=== PATIENT | female | born 1935 | race Caucasian/White ===

== ENCOUNTER → 2016-08-25 | Outpatient (CLI) | payer MEDICARE ==
[2016-08-25 11:28] LABS: Basophils % (A) 1 %; CH 31.5; CHCM 34.2; Eosinophils # (A) 0.1 k/uL (0-0.7); Eosinophils % (A) 1 %; HCT 40.2 % (34.0-46.0); HDW 2.76; HGB 13.4 gm/dL (11.4-16.0); Luc % (Auto) 3; Lymphocytes # (A) 1.2 k/uL (1.0-4.8); Lymphocytes % (A) 18 %; MCH 30.9 pg (25.0-35.0); MCHC 33.4 g/dL (31.0-37.0); MCV 92.6 fL (80.0-100.0); Mean Platelet Volume 7.6; Monocytes # (A) 0.7 k/uL (0-1.0); Monocytes % (A) 11 %; Neutrophils # (A) 4.5 k/uL (1.3-7.7); Neutrophils % (A) 66 %; RBC 4.34 m/uL (3.80-5.40); RDW 13.4 % (11.5-15.5); WBC 6.8 k/uL (3.8-10.6); WBC (Perox) 6.94
[2016-08-25 12:08] LABS: Anion Gap 10 mmol/L; Blood Urea Nitrogen 26 mg/dL (7-17); Calcium 9.1 mg/dL (8.4-10.2); Carbon Dioxide 36 mmol/L (22-30); Chloride 96 mmol/L (98-107); Glucose 140 mg/dL (74-99); Non-African American GFR(MDRD) >60 (>60 ml/min/1.73 sqM); Potassium 3.4 mmol/L (3.5-5.1); Sodium 142 mmol/L (137-145)
== END | disposition home or self-care (01) ==
LOC: LABWHC1 10:51
PROVIDERS: ATTEND Family Medicine
DX: Z01.818 Encounter for other preprocedural examination (principal); J84.10 Pulmonary fibrosis, unspecified
CPT/HCPCS: 36415; 80048; 85025

== ENCOUNTER → 2016-08-25 | Outpatient (CLI) | payer MEDICARE ==
--- NOTE | 2016-08-25 12:19 | XR ---
EXAMINATION TYPE: XR chest 2V DATE OF EXAM: 08/25/2016 11:54 AM COMPARISON: NONE INDICATION: Pulmonary fibrosis TECHNIQUE: Frontal and lateral views of the chest are obtained. FINDINGS: The heart size is normal. The pulmonary vasculature is normal. The lungs are clear. Suspicious infiltrates are not evident. IMPRESSION: 1. No acute pulmonary process.
== END | disposition home or self-care (01) ==
LOC: RADXRMAIN 11:11
PROVIDERS: ATTEND Internal Medicine Geriatric Medicine
DX: J84.10 Pulmonary fibrosis, unspecified (principal)
CPT/HCPCS: 71020

== ENCOUNTER 2016-09-13 06:21 | Day surgery (SDC) | payer MEDICARE ==
[2016-09-10 14:12] VITALS: BMI 26.5
--- NOTE | 2016-09-12 15:18 | HP ---
DATE OF ADMISSION: 09/13/2016 Ellie Barrios is an 81-year-old patient seen with progressive left knee pain. After having treatment options discussed, she elected to proceed with left knee arthroscopy. Consent was obtained. Medical clearance provided by Dr. Salinas. Past medical history is [id number] diabetes, hypertension, asthma, hypothyroidism, gastroesophageal reflux disease. PAST SURGICAL HISTORY: Cataract surgery, cholecystectomy, thyroidectomy. Daily medications are: 1. Isosorbide. 2. Metformin. 3. Metoprolol/hydrochlorothiazide. 4. [place]. 5. Pravastatin. 6. Prilosec. 7. Synthroid. ALLERGIES: None reported. SOCIAL HISTORY: Patient denies tobacco use. Physical evaluation of the left knee: Range of motion is -1/2 to 120 degrees. There is a mild to moderate intra-articular effusion present. Tenderness medial joint line. Positive medial Celestina's. Ligaments are stable. Hip rotation is without pain. Distal neurovascular exam is intact. Radiographs of the left knee revealed moderate medial compartment osteoarthritis. An MRI of the left knee revealed a medial and lateral meniscal tear as well as osteoarthritic changes. IMPRESSION: 1. Internal derangement of the left knee with medial and lateral meniscal tears. 2. Left knee osteoarthritis. PLAN: Left knee arthroscopy with partial medial and lateral meniscectomy and debridement.
[~2016-09-13 06:21] MED LIST: DEXAMETHASONE SOD PHOSPHATE 10 MG/ML 1 ML VIAL IV ONE; HYDROmorphone 1 MG/ML 1 ML SYRINGE IVP PRN; LACTATED RINGERS 1,000 ML IV SCH; MIDAZOLAM 2 MG/2 ML VIAL IV PRN; ONDANSETRON 4 MG/2 ML VIAL IVP ONE; ceFAZolin 1,000 MG in DEXTROSE/WATER 1 50ML.BAG IV ONE
[2016-09-13 07:02] VITALS: RESP 16
[2016-09-13] MEDS ORDERED: LIDOCAINE 1% 20 ML VIAL (10MG/ML) FOR IV START INTRADERMA ONE (07:05)
[2016-09-13 07:19] LABS: Glucose,Whole Blood 124 mg/dL (75-99)
[2016-09-13] MEDS ORDERED: PROPOFOL 10 MG/ML 20 ML VIAL IV ONE (07:28)
[2016-09-13] MEDS ORDERED: MIDAZOLAM 2 MG/2 ML VIAL ONE (07:28)
[2016-09-13] MEDS ORDERED: BUPIVACAIN-EPI 0.25%-1:200,000 30 ML VIAL INTRAARTIC ONE (07:28)
[2016-09-13] MEDS ORDERED: SUCCINYLCHOLINE CHLORIDE 100 MG/5 ML SYR IV ONE (07:28)
[2016-09-13] MEDS ORDERED: LIDOCAINE 1% INJ 10MG/ML (20 ML MDV) ONE (07:28)
[2016-09-13] MEDS ORDERED: fentaNYL (PF) 50 MCG/ML 2 ML AMP ONE (07:28)
--- NOTE | 2016-09-13 08:31 | P.OP ---
Date of Procedure: 09/13/16 Preoperative Diagnosis: Internal derangement left knee Postoperative Diagnosis: 1. Tear medial and lateral meniscus left knee 2. Grade 4 chondromalacia medial femoral condyle left knee 3. Grade 3 chondromalacia lateral femoral condyle left knee 4. Reactive synovitis medial and suprapatellar compartments left knee Procedure(s) Performed: 1. Arthroscopic partial medial and lateral meniscectomy left knee 2. Arthroscopic chondroplasty medial femoral condyle left knee 3. Arthroscopic chondroplasty lateral femoral condyle left knee 4. Arthroscopic partial synovectomy medial and suprapatellar compartments left knee Anesthesia: GETA Surgeon: Roland Sarkar Estimated Blood Loss (ml): 10 Pathology: none sent Condition: stable Disposition: PACU Indications for Procedure: 81-year-old patient seen with progressive left knee pain. After having treatment options discussed, she elected to proceed with left knee arthroscopy. Operative Findings: see description of procedure Description of Procedure: Patient was taken to the operative suite. Patient underwent a general anesthetic by the department of anesthesia. Patient was given preoperative antibiotics. The left lower extremity was placed in a well-padded arthroscopic leg torres. The left leg was prepped and draped in the normal sterile orthopedic fashion. A lateral parapatellar and suprapatellar incision was made. Trochars were inserted. Arthroscopy was initiated. Suprapatellar pouch revealed thick reactive synovitis. The patellofemoral joint appeared to articulate congruently. There was grade 2/3 chondromalacia without any significant osteochondral tears present. The scope was guided into the medial gutter. No loose bodies or plica were identified. The scope was then guided into the medial compartment. A medial parapatellar incision was made. Trocar inserted followed by probe. There was a complex tear involving the posterior horn and midbody medial meniscus. There were grade 4 chondromalacia changes of both the medial femoral condyle and tibial plateau. There was an area of bone contact on the most medial weightbearing surface area. There were osteochondral tears of the medial femoral condyle. There was reactive synovitis anteriorly. A partial medial meniscectomy was performed on a stable tissue. I performed a chondroplasty of the medial femoral condyle and partial synovectomy. The residual meniscus was probed and found to be stable. Scope and probe were then guided into the intercondylar notch. Cruciates were identified, probed and found to be stable. The scope and probe were then guided into lateral compartment. There was a complex tear of the lateral meniscus. It involved mid body as well as posterior horn area. There were grade 3 chondral changes of lateral femoral condyle and grade 2 condylar changes lateral tibial plateau. A partial lateral meniscectomy was performed on a stable tissue. I performed a chondroplasty lateral femoral condyle. The residual meniscus appeared stable. The scope was in guided back into the suprapatellar compartment. I introduced the motorized shaver into the suprapatellar compartment. I debrided some piecemeal fragments of meniscus and performed a partial synovectomy. Shaver removed. Instruments were now removed from the joint. The joint was infiltrated with .25% Marcaine. Steri-Strips were applied to the portal sites. Sterile dressings were applied. The patient was placed into a FREDERIC hose. No tourniquet was utilized. The patient was awakened, transferred to a bed and taken to recovery stable satisfactory condition.
[2016-09-13 08:48] VITALS: TEMP 97.2
[2016-09-13] MEDS ORDERED: HYDROcodone/APAP 7.5-325MG 1 EACH TAB PO ONE (09:29)
[2016-09-13 10:19] VITALS: BP 111/61; PULSE 77
== END 2016-09-13 10:40 | disposition home or self-care (01) ==
LOC: OR 06:21
PROVIDERS: ATTEND Orthopaedic Surgery
DX: S83.242A Other tear of medial meniscus, current injury, left knee, initial encounter (principal); S83.282A Other tear of lateral meniscus, current injury, left knee, initial encounter; X58.XXXA Exposure to other specified factors, initial encounter; M94.262 Chondromalacia, left knee; M65.862 Other synovitis and tenosynovitis, left lower leg; M23.92 Unspecified internal derangement of left knee; M17.12 Unilateral primary osteoarthritis, left knee; M25.462 Effusion, left knee; I10 Essential (primary) hypertension; E78.5 Hyperlipidemia, unspecified; G47.33 Obstructive sleep apnea (adult) (pediatric); J84.10 Pulmonary fibrosis, unspecified; K21.9 Gastro-esophageal reflux disease without esophagitis; J45.909 Unspecified asthma, uncomplicated; G25.81 Restless legs syndrome; Z85.850 Personal history of malignant neoplasm of thyroid; E89.0 Postprocedural hypothyroidism; Z86.73 Personal history of transient ischemic attack (TIA), and cerebral infarction without residual deficits; Z79.82 Long term (current) use of aspirin; Z79.891 Long term (current) use of opiate analgesic; Z79.899 Other long term (current) drug therapy
CPT/HCPCS: 29880; J2250; J1100; J2405; J2001; J3010; J0690; J0330; J2704

== ENCOUNTER → 2017-04-04 | Outpatient (CLI) | payer MEDICARE ==
--- NOTE | 2017-04-04 13:36 | XR ---
EXAMINATION TYPE: XR chest 2V DATE OF EXAM: 04/04/2017 HISTORY: Z01.818 Pre surgical. REFERENCE: Previous study dated 08/25/2016. FINDINGS: Heart is mildly prominent. The lungs are clear. Pleural spaces are clear. IMPRESSION: MILD CARDIOMEGALY.
--- NOTE | 2017-04-04 13:40 | US ---
EXAMINATION TYPE: US kidneys/renal and bladder DATE OF EXAM: 04/04/2017 COMPARISON: NONE CLINICAL HISTORY: R31.9 Hematuria. EXAM MEASUREMENTS: Right Kidney: 8.9 x 4.2 x 4.0 cm Left Kidney: 7.6 x 4.1 x 3.6 cm Right Kidney: No hydronephrosis, nephrolithiasis or masses seen, atrophy Left Kidney: No hydronephrosis, nephrolithiasis or masses seen, atrophy Bladder: wnl Bilateral Jets seen: Yes IMPRESSION: Kidneys are somewhat atrophic bilaterally with no hydronephrosis or nephrolithiasis. Renal cortex fany ewhat increased in echo pattern correlate for chronic medical renal disease.
== END | disposition home or self-care (01) ==
LOC: RADUSWWP 12:38
PROVIDERS: ATTEND Family Medicine
DX: N26.1 Atrophy of kidney (terminal) (principal); I51.7 Cardiomegaly
CPT/HCPCS: 71020; 76770

== ENCOUNTER → 2017-04-11 | Outpatient (CLI) | payer MEDICARE ==
[~2017-04-11] MED LIST changes: -DEXAMETHASONE SOD PHOSPHATE 10 MG/ML 1 ML VIAL IV ONE; -HYDROmorphone 1 MG/ML 1 ML SYRINGE IVP PRN; -LACTATED RINGERS 1,000 ML IV SCH; -MIDAZOLAM 2 MG/2 ML VIAL IV PRN; -ONDANSETRON 4 MG/2 ML VIAL IVP ONE; +REGADENOSON 0.4 MG/5 ML SYRINGE IV ONE; -ceFAZolin 1,000 MG in DEXTROSE/WATER 1 50ML.BAG IV ONE
--- NOTE | 2017-04-11 11:41 | NM ---
EXAMINATION TYPE: NM stress lexiscan cardiolite DATE OF EXAM: 04/11/2017 COMPARISON: NONE HISTORY: Abnormal EKG per order. History of asthma, hypertension, hypercholesteremia per patient, pre surgical study. TECHNIQUE: After the intravenous administration of 11.38 mCi Tc 99m Sestamibi - Cardiolite resting S PECT images acquired 45 minutes post injection. The patient received 0.4mg Lexiscan, 28.4 mCi Tc 99m Sestamibi - Stress images obtained [address] injection FINDINGS: Review of stress and rest SPECT images demonstrates no distinct perfusion abnormality. There is some diminished uptake in rest and stress images involving inferior lateral wall mid segment extending tow ards apex in which the area of old infarct cannot be excluded versus artifact which is favored. Gated analysis shows normal wall motion with an estimated left ventricular ejection fraction of 57 %. IMPRESSION: No scintigraphic evidence for reversible ischemia.
--- NOTE | 2017-04-11 13:08 | EST ---
EXERCISE STRESS AGE:: 81 SEX:: F HT:: 62" WT:: 153 PROTOCOL:: LEXISCAN CARDIOLITE STRESS TEST STAGE:: - DURATION OF EXERCISE:: - HEART RATE REST:: 77 BLOOD PRESSURE REST:: 130/70 MAXIMUM HEART RATE ACHIEVED:: 105 MAXIMUM BLOOD PRESSURE:: 139/63 85% MPHR:: - 100% MPHR:: - METS:: - INDICATIONS:: Preoperative CLINICAL INFORMATION:: Baseline EKG revealed normal sinus rhythm with right bundle branch block pattern, repolarization abnormality, rare PVCs. With Lexiscan administration, heart rate changed from 77 to 105 beats per minute. Baseline blood pressure was 130/70 changed to 139/63. EKG remained inconclusive. Patient did not have angina. By EKG criteria, this is an inconclusive Lexiscan stress test because of resting EKG changes. The nuclear scan results which are more pertinent, will be reported by the radiologist. PORSCHEL / RACHELN: [id number] /
--- NOTE | 2017-04-12 17:35 | ECHOF ---
Referral Reason:R94.31 abn ekg MEASUREMENTS -------- HEIGHT: 157.5 cm WEIGHT: 69.4 kg BP: RVIDd: 3.0 cm (< 3.3) IVSd: 0.7 cm (0.6 - 1.1) LVIDd: 4.7 cm (3.9 - 5.3) LVPWd: 0.8 cm (0.6 - 1.1) IVSs: 1.0 cm LVIDs: 3.7 cm LVPWs: 0.8 cm LA Diam: 3.0 cm (2.7 - 3.8) LAESV Index (A-L): 22.99 ml/m Ao Diam: 2.6 cm (2.0 - 3.7) AV Cusp: 1.6 cm (1.5 - 2.6) LA Diam: 3.7 cm (2.7 - 3.8) MV EXCURSION: 15.271 mm (> 18.000) MV EF SLOPE: 53 mm/s (70 - 150) EPSS: 0.3 cm MV E [place]: 0.40 m/s MV DecT: 270 ms MV A [place]: 0.85 m/s MV E/A Ratio: 0.47 RAP: 5.00 mmHg RVSP: 22.97 mmHg FINDINGS -------- Sinus rhythm. This was a technically good study. LV size, wall thickness and systolic function are normal, with an EF greater than 55%. The right ventricle is normal in size. Normal LA size by volume 22+/-6 ml/m2. The right atrial size is normal. There is mild aortic valve sclerosis. Trace amount of aortic regurgitation. Mild mitral annular calcification present. Mild mitral regurgitation is present. Mild tricuspid regurgitation present. There is no evidence of pulmonary hypertension. The right ventricular systolic pressure, as measured by Doppler, is 22.97mmHg. There is no pulmonic regurgitation present. The aortic root size is normal. There is no pericardial effusion. CONCLUSIONS -------- 1. LV size, wall thickness and systolic function are normal, with an EF greater than 55%. 2. The aortic root size is normal. 3. There is mild aortic valve sclerosis. 4. Trace amount of aortic regurgitation. 5. Mild mitral annular calcification present. 6. Mild mitral regurgitation is present. 7. Mild tricuspid regurgitation present. 8. There is no evidence of pulmonary hypertension. 9. The right ventricular systolic pressure, as measured by Doppler, is 22.97mmHg. 10. There is no pulmonic regurgitation present. ASSISTANT FLOOR COVERING PRINTER: Charo Fan RDCS
== END ==
LOC: RADNMMAIN 08:07
PROVIDERS: ATTEND Family Medicine
DX: R94.31 Abnormal electrocardiogram [ECG] [EKG] (principal)
CPT/HCPCS: 93017; 93306; 78452; A9500; J2785

== ENCOUNTER 2017-04-22 08:13 | Inpatient (IN) | payer MEDICARE ==
[2017-04-17 11:27] VITALS: BMI 27.1
--- NOTE | 2017-04-21 15:23 | HP ---
HISTORY AND PHYSICAL DATE OF SURGERY: Surgery is scheduled for 04/22/2017. Ellie Jason is an 81-year-old patient seen with symptomatic left knee osteoarthritis. After having treatment options discussed, she elected to proceed with left total knee arthroplasty. Consent was obtained. Medical clearance was provided by Dr. Salinas. PAST MEDICAL HISTORY: Hypertension, insulin-dependent diabetes, hypothyroidism, gastroesophageal reflux disease. PAST SURGICAL HISTORY: Cataract surgery, cholecystectomy, thyroidectomy, left knee arthroscopy. DAILY MEDICATIONS: 1. Metformin. 2. Metoprolol. 3. [place]. 4. Pravastatin. 5. Prilosec. 6. Synthroid. 7. vitamins. ALLERGIES: None reported. SOCIAL HISTORY: Patient denies tobacco use. PHYSICAL EVALUATION LEFT KNEE: Range of motion is -3/4 to 115 degrees. Tenderness on the medial joint line. There is crepitus on the medial patellofemoral compartments with range of motion. There is pain with patellofemoral compression. Ligaments are stable. Hip rotation is without pain. Distal neurovascular exam is intact. RADIOGRAPHS: Radiographs of the left knee reveal severe medial moderate patellofemoral compartment. IMPRESSION: Left knee osteoarthritis. PLAN: Left total knee arthroplasty. MMODL / IJN: [id number] /
[~2017-04-22 08:13] MED LIST changes: +ACETAMINOPHEN TAB 500 MG TAB PO ONE; +DEXAMETHASONE SOD PHOSPHATE 10 MG/ML 1 ML VIAL IV ONE; +HYDROmorphone 1 MG/ML 1 ML SYRINGE IVP PRN; +LACTATED RINGERS 1,000 ML IV SCH; +MELOXICAM 7.5 MG TAB PO ONE; +MIDAZOLAM 2 MG/2 ML VIAL IV PRN; +ONDANSETRON 4 MG/2 ML VIAL IVP ONE; -REGADENOSON 0.4 MG/5 ML SYRINGE IV ONE; +TRANEXAMIC ACID 1,000 MG in SODIUM CHLORIDE 0.9% 100 ML IVPB ONE; +ceFAZolin 2 GM in SODIUM CHLORIDE 0.9% 100 ML IVPB ONE
[2017-04-22] MEDS ORDERED: LIDOCAINE 1% 20 ML VIAL (10MG/ML) FOR IV START INTRADERMA ONE (09:45)
[2017-04-22] MEDS ORDERED: fentaNYL (PF) 50 MCG/ML 2 ML AMP IV ONE (09:54)
[2017-04-22 09:58] LABS: Glucose,Whole Blood 127 mg/dL (75-99)
[2017-04-22] MEDS ORDERED: ROPIVACAINE 246.25 MG, EPINEPHrine 0.5 MG, KETOROLAC 30 MG, cloNIDine HCL/PF 80 MCG, WA... MISCELLANE ONE ×5 (09:59)
[2017-04-22] MEDS ORDERED: ROPIVACAINE 1,100 MG, SODIUM CHLORIDE 0.9% 330 ML MISCELLANE PRN ×2 (10:21)
--- NOTE | 2017-04-22 10:22 | P.ONQ ---
Anesthesiology Proc Note - PNB - Peripheral Nerve Block Performed Left Adductor Canal Infusion Time Out Performed: Yes Indication: Acute Post-Operative Pain, Analgesia Specifically requested for management of pain by DrBala: Roland Sarkar Sedation Type: Sedate with meaningful contact maintained Preparation: Sterile Prep Position: Supine Catheter Depth at Skin (cm): 6 Catheter: Indwelling Needle Types: Other (see comment) (pajunk) Needle Size: 100mm (4") Needle Gauge: 21 Technique: Ultrasound Injectate: 0.5% Ropivacaine (see comment for volume) (20cc) Blood Aspirated: No Pain Paresthesia on Injection Noted: No Resistance on Injection: Normal Events: Uneventful and Well Tolerated
[2017-04-22] MEDS ORDERED: MIDAZOLAM 2 MG/2 ML VIAL ONE (10:27)
[2017-04-22] MEDS ORDERED: diphenhydrAMINE 50 MG/ML 1 ML VIAL ONE (10:27)
[2017-04-22] MEDS ORDERED: SODIUM CHLORIDE 0.9% 100 ML BAG ONE (10:27)
[2017-04-22] MEDS ORDERED: TRANEXAMIC ACID 1,000 MG/10 ML VIAL ONE (10:27)
[2017-04-22] MEDS ORDERED: ceFAZolin 3,000 MG in SODIUM CHLORIDE 0.9% IRRIGATIO 3,000 ML IRRIGATION ONE (11:03)
[2017-04-22] MEDS ORDERED: LACTATED RINGERS 1,000 ML IV ONE (11:06)
[2017-04-22] MEDS ORDERED: NALOXONE 0.4 MG/ML 1 ML VIAL IV PRN (12:19)
[2017-04-22] MEDS ORDERED: HYDROmorphone 1 MG/ML 1 ML SYRINGE IVP PRN ×3 (12:19)
[2017-04-22] MEDS ORDERED: hydrOXYzine PAMOATE 25 MG CAP PO PRN (12:19)
[2017-04-22] MEDS ORDERED: HYDROcodone/APAP 7.5-325MG 1 EACH TAB PO PRN ×2 (12:19)
[2017-04-22] MEDS ORDERED: ONDANSETRON 4 MG/2 ML VIAL IVP PRN (12:19)
--- NOTE | 2017-04-22 12:19 | P.OP ---
Date of Procedure: 04/22/17 Preoperative Diagnosis: Left knee osteoarthritis Postoperative Diagnosis: Left knee osteoarthritis Procedure(s) Performed: Left total knee arthroplasty Implants: 1. Kesha persona size 5 left narrow cruciate retaining cemented femur 2. Kesha persona size C cemented tibia 3. Kesha persona 10 mm medial congruent polyethylene tibial insert 4. Kesha persona 32 mm cemented all polyethylene patella Anesthesia: regional (Adductor canal catheter), local, spinal Surgeon: Roland Sarkar Virtual Customer Assistant #1: Tristin Hilario Estimated Blood Loss (ml): 200 Pathology: other (Bone) Condition: stable Disposition: PACU Indications for Procedure: 81-year-old patient seen with symptomatic left knee osteoarthritis. After treatment options were discussed, she elected to proceed with total knee arthroplasty. Operative Findings: See description of procedure Description of Procedure: Patient was taken to the operative suite after having an adductor canal catheter placed by the department of anesthesia. Patient underwent a spinal anesthetic by the department of anesthesia. Patient was given preoperative IV intake antibiotics and TXA. A well-padded tourniquet was placed about the left lower extremity. The lower extremity was then prepped and draped in the normal sterile orthopedic fashion. A standard anterior incision was made sharply through skin. Dissection was taken down through the subcutaneous soft tissues down to the extensor mechanism. A medial arthrotomy was performed, patella was everted and knee was flexed. There was advanced osteoarthritis noted. A proximal tibial cutting guide was positioned. Proximal tibial cut was made. A distal intramedullary femoral cutting guide was positioned, distal femoral cut made. We placed the appropriate sizing guide and selected the appropriate size. A distal 4-in-1 femoral cutting block was positioned, distal femoral cuts were made. We now placed a trial femoral component into position, along with an appropriate size tibial tray and insert. We now took the knee through range of motion and had full extension good flexion and good overall soft tissue balance noted. The patella was everted and a flush cut made with patellar quad tendon. We templated the patella, appropriate drill holes were made. An appropriate trial patella was positioned, knee was taken through full range of motion with the patella tracking very nicely. The trial patella was removed. Drill holes were made through the femoral component. All trial components were removed after marking off the appropriate rotation of the tibia. Retractors were now positioned along the proximal tibia. An appropriate keel punch was made with the appropriate size tibial guide. The tourniquet was insufflated to 350. At this point appropriate size implants were chosen and opened. The joint was irrigated copiously with pulse lavage mechanical irrigation. The deep soft tissues were infiltrated local analgesic. We mixed antibiotic methylmethacrylate. Once the methyl methacrylate was ready, the tibial component was cemented into place removing any excess methylmethacrylate. The femoral component was cemented into place removing the removing any excess methylmethacrylate. We then inserted the appropriate size polyethylene tibial insert. We made sure that it was locked into position. We took the knee into full extension, and then back in a flexion making sure we had removed any excess methylmethacrylate. The patellar component was then cemented down and secured with clamp. Excess methylmethacrylate removed. We kept the knee in full extension, patellar clamp in position until methylmethacrylate had hardened. Once it had hardened the patellar clamp was removed. The knee was taken through full range of motion. The patella tracked nicely. There was good soft tissue balancing. The tourniquet was now released. Additional hemostasis was achieved via electrocautery. A second gram of TXA was given. The wound was irrigated with pulse lavage mechanical irrigation. The superficial soft tissues were infiltrated local analgesic. The extensor mechanism was repaired with Vicryl. We checked the repair with range of motion and it was stable. The subcutaneous soft tissues were repaired with Vicryl in layers. The skin was approximated with pernio/Dermabond. Sterile dressings were applied followed by loose web roll and Amrit bandage. The patient was transferred to a bed, and taken to recovery in stable and satisfactory condition. Kj VALLECILLO assisted with the procedure.
[2017-04-22 12:58] LABS: Glucose,Whole Blood 164 mg/dL (75-99)
--- NOTE | 2017-04-22 13:03 | XR ---
EXAMINATION TYPE: XR knee limited LT DATE OF EXAM: 04/22/2017 CLINICAL HISTORY: Left knee pain and arthritis status post total knee replacement. TECHNIQUE: Portable AP and crosstable lateral views of the left knee are obtained immediately postop eratively. COMPARISON: Left knee x-ray July 02, 2016. FINDINGS: Metallic hardware from total left knee arthroplasty is seen and appears satisfactory in al ignment and position. There is evidence of recent surgery with diffuse subcutaneous gas and soft tis jose noted extending anteriorly and superiorly. IMPRESSION: METALLIC HARDWARE FROM TOTAL LEFT KNEE ARTHROPLASTY IS SATISFACTORY IN ALIGNMENT.
--- NOTE | 2017-04-22 13:17 | P.DS ---
Providers Date of admission: 04/22/17 08:13 Expected date of discharge: 04/23/17 Attending physician: Roland Sarkar Consults: 04/22/17 12:19 Consult Physician Routine Consulting Provider: Jonas Belle Reason/Comments: Medical management Do you want consulting provider notified?: Yes Primary care physician: Jonas Belle [facility] Course: Date of admission: 04/22/2017 Date of discharge: 04/23/2017 Admission diagnosis: Status post left total knee arthroplasty Discharge diagnosis: Name Attending physician: Dr. Sarkar Surgical procedures: Left total knee arthroplasty Brief history: Patient is a 81-year-old female with a history of progressive primary left knee osteoarthritis. At this point patient has failed conservative treatment measures and has opted to proceed with a elective left total knee arthroplasty. Hospital course: Details of patient's surgery can be found in operative report. Patient tolerated the procedure well and was subsequently transported to orthopedic floor. Patient's orthopeidc and medical care was provided daily. Patient had daily laboratory tests performed for evaluation of overall blood counts. Patient had daily physical therapy to include strengthening range of motion as well as education with walker ambulation. Patient had daily CPM usage as part of their physical therapy program. Patient was treated with Lovenox for their postoperative DVT prophylaxis during their inpatient stay. Patient was noted to have a relatively uneventful postoperative course. Patient reported satisfactory pain control with oral pain medications by postoperative day 1. Patient showed satisfactory progress with physical therapy. Patient moved steadily through the program and had no difficulty meeting the goals by postoperative day 1. Given patient's otherwise satisfactory course and having met physical therapy goals, plan is to discharge patient home on postoperative day 1. Discharge condition/disposition: Patient will be discharged home in stable condition. Discharge medications: Instructions are given on resumption of patient's normal daily medications per primary care recommendation, in addition patient will be prescribed tramadol 50 mg, [place] 7.5 mg/325 mg, Pepcid 20 mg, aspirin 325 mg. Discharge instructions: 1. Wound care and infection precautions, keep incision dry and covered while showering, no lotions, creams, moisturizers. No soaking, tubs, pools, hottubs. Do not scrub over the incision. 2. Weight-bear as tolerated with walker / cane until follow-up. 3. Ice and elevate when necessary. Do not exceed 20 minutes per hour with ice pack. 4. Utilize compression sleeve until seen at first follow up appointment. 5. Visiting nursing care. 6. Home physical therapy including home CPM]. 7. Pain meds and anticoagulants per prescription. 8. Pain medication has potential to cause constipation. Increase oral fluid and fiber intake. Contact primary care provider if you have not had a bowel movement within 48 hours after discharge 9. No anti-inflammatory medication until discussed at first post operative visit, this including Motrin, Aleve, Mobic, Diclofenac. 10. Follow up in office at 2 weeks postop with Kj Hilario PA-C 11. Follow up with your primary care doctor 7-10 days after discharge. 12. Contact [facility] with any questions, . Procedures: Left total knee arthroplasty Patient Condition at Discharge: Good Plan - Discharge Summary New Discharge Prescriptions: New Famotidine [Pepcid] 20 mg PO DAILY #30 tab HYDROcodone/APAP 7.5-325MG [[place] 7.5-325] 1 each PO Q6H PRN #120 tab PRN Reason: Pain Scale 1 To 5 Aspirin EC [Ecotrin] 325 mg PO BID #60 tablet. traMADol HCl [Ultram] 50 mg PO Q6H PRN #40 tab PRN Reason: Pain Continue Metolazone [Zaroxolyn] 2.5 mg PO DAILY Metoprolol Tartrate 25 mg PO BID prednisoLONE ACETATE 1% OPHTH [Pred Forte 1%] 2 drops BOTH EYES Q7D Levothyroxine Sodium [Synthroid] 112 mcg PO QAM rOPINIRole HCL [Requip] 1 mg PO HS Pravastatin Sodium [Pravachol] 80 mg PO HS Montelukast [Singulair] 10 mg PO HS Glucosamine/Ch[place]r [place] A Sod [Osteo Bi-Flex Caplet] 1 tab PO DAILY Cyanocobalamin [Vitamin B-12] 2,500 mcg PO HS Multivit-Min/FA/Lycopen/Lutein [Centrum Silver Tablet] 1 tab PO DAILY Fluticasone Nasal [place] [Flonase Nasal [place]] 1 spray EA NOSTRIL DAILY PRN PRN Reason: Sinus Symptoms Isosorbide Mononitrate ER [Imdur] 30 mg PO QAM Methylphenidate HCl 10 mg PO DAILY PRN PRN Reason: Anxiety Mometasone/Formoterol [Dulera 200 Mcg/5 Mcg Inhaler] 2 puff INHALATION RT- BID PRN PRN Reason: sob cycloSPORINE [Restasis] 1 applicator BOTH EYES BID Discontinued Raloxifene HCl 60 mg PO DAILY Aspirin [Adult Low Dose Aspirin EC] 81 mg PO DAILY HYDROcodone/APAP 7.5-325MG [[place] 7.5] 1 tab PO Q6HR PRN PRN Reason: Pain Discharge Medication List Cyanocobalamin [Vitamin B-12] 2,500 mcg PO HS 07/11/15 [History] Glucosamine/Chondr [place] A Sod [Osteo Bi-Flex Caplet] 1 tab PO DAILY 07/11/15 [ History] Levothyroxine Sodium [Synthroid] 112 mcg PO QAM 07/11/15 [History] Metolazone [Zaroxolyn] 2.5 mg PO DAILY 07/11/15 [History] Metoprolol Tartrate 25 mg PO BID 07/11/15 [History] Montelukast [Singulair] 10 mg PO HS 07/11/15 [History] Multivit-Min/FA/Lycopen/Lutein [Centrum Silver Tablet] 1 tab PO DAILY 07/11/15 [ History] Pravastatin Sodium [Pravachol] 80 mg PO HS 07/11/15 [History] prednisoLONE ACETATE 1% OPHTH [Pred Forte 1%] 2 drops BOTH EYES Q7D 07/11/15 [ History] rOPINIRole HCL [Requip] 1 mg PO HS 07/11/15 [History] Fluticasone Nasal [place] [Flonase Nasal [place]] 1 spray EA NOSTRIL DAILY PRN 09/10 [History] Isosorbide Mononitrate ER [Imdur] 30 mg PO QAM 09/10/16 [History] Methylphenidate HCl 10 mg PO DAILY PRN 04/17/17 [History] Mometasone/Formoterol [Dulera 200 Mcg/5 Mcg Inhaler] 2 puff INHALATION RT-BID PRN 04/17/17 [History] cycloSPORINE [Restasis] 1 applicator BOTH EYES BID 04/22/17 [History] Aspirin EC [Ecotrin] 325 mg PO BID #60 tablet. 04/23/17 [Rx] Famotidine [Pepcid] 20 mg PO DAILY #30 tab 04/23/17 [Rx] HYDROcodone/APAP 7.5-325MG [[place] 7.5-325] 1 each PO Q6H PRN #120 tab 04/23/17 [ Rx] traMADol HCl [Ultram] 50 mg PO Q6H PRN #40 tab 04/23/17 [Rx] Follow up Appointment(s)/Referral(s): Jonas Belle MD [Primary Care Provider] - 05/02/17 11:00 am (with [facility]) [facility], [NON-STAFF] - Tristin Hilario PAC [PHYSICIAN LICENSED CERTIFIED ORTHOTIST] - 05/08/17 1:30 pm Patient Instructions/Handouts: Knee Replacement (DC) Activity/Diet/Wound Care/Special Instructions: Orthopedic Discharge Instructions: 1. Wound care and infection precautions, keep incision dry and covered while showering, no lotions, creams, moisturizers. No soaking, pools, hot tubs. Do not scrub over incision. 2. Weight-bear as tolerated with walker / cane until follow-up. 3. Ice and elevate when necessary. Do not exceed 20 minutes per hour with ice pack. 4. Utilize compression sleeve until seen at first follow up appointment. 5. Visiting nursing care. 6. Home physical therapy [including home CPM]. 7. Pain meds and anticoagulants per prescription. 8. Pain medication has potential to cause constipation. Increase oral fluid and fiber intake. Contact primary care provider if you have not had a bowel movement within 48 hours after discharge. 9. No anti-inflammatory medication until discussed at first post operative visit, this including Motrin, Aleve, Mobic, Diclofenac. 10. Follow up in office at 2 weeks postop with Kj Hilario PA-C 11. Follow up with your primary care doctor 7-10 days after discharge. 12. Contact [facility] with any questions, . Discharge Disposition: HOME WITH HOME HEALTH SERVICES
[2017-04-22] MEDS ORDERED: FLUTICASONE 50MCG/SPRAY NASAL 16GM EA NOSTRIL PRN (15:43)
[2017-04-22] MEDS ORDERED: SYMBICORT 160-4.5 MCG INHALER INHALATION PRN (15:43)
--- NOTE | 2017-04-22 15:43 | P.CONS ---
History of Present Illness - Reason for Consult Consult date: 04/22/17 medical management Requesting physician: Roland Sarkar - Chief Complaint post left total knee arthroplasty - History of Present Illness This is an 81-year-old female one of Dr. Salinas with a previous medical history significant for hyperlipidemia, asthma, ALLERGIC rhinitis, restless leg syndrome, obstructive sleep apnea, hypothyroidism post the thyroidectomy due to thyroid cancer back in 2012, osteoarthritis, patient underwent left total knee arthroplasty that was done successfully by and we were asked to see her for medical management. Patient is sitting up in bed in no apparent distress, she denies any chest pain , shortness of breath, she has no abdominal pain, nausea, vomiting, she is feeling good and she is asking to go home in the next 24 hours. Review of Systems Constitutional: Denies chronic headaches, Denies lethargy, Denies weakness Eyes: denies as per HPI, denies blurred vision, denies bulging eye Ears: deny: decreased hearing Ears, nose, mouth and throat: Denies dysphagia, Denies neck lump, Denies sore throat Cardiovascular: Denies chest pain, Denies decreased exercise tolerance, Denies dyspnea on exertion, Denies high blood pressure, Denies paroxysmal nocturnal dyspnea, Denies phlebitis, Denies rapid heart beat, Denies shortness of breath Respiratory: Reports sleep apnea, Denies congestion, Denies cough with sputum, Denies home oxygen, Denies snoring, Denies wheezing Gastrointestinal: Denies abdominal pain, Denies bloating, Denies heartburn, Denies melena, Denies nausea, Denies vomiting Genitourinary: Denies dysuria, Denies hematuria Menstruation: Reports post hysterectomy Musculoskeletal: Denies myalgias Musculoskeletal: left: knee pain, knee stiffness, knee swelling, absent: ankle pain, ankle stiffness, ankle swelling, elbow pain, elbow stiffness, elbow swelling, foot pain, foot stiffness, foot swelling, hand pain, hand stiffness, hand swelling, hip pain, hip stiffness, hip swelling, shoulder pain, shoulder stiffness, shoulder swelling, wrist pain, wrist stiffness, wrist swelling Integumentary: Denies pruritus, Denies rash Neurological: Denies numbness, Denies weakness Psychiatric: Denies anxiety, Denies depression Endocrine: Denies fatigue, Denies weight change Past Medical History Past Medical History: Asthma, Diabetes Mellitus, Hyperlipidemia, Hypertension, Osteoarthritis (OA), Sleep Apnea/CPAP/BIPAP Additional Past Medical History / Comment(s): varicose veins rt leg,no longer uses cpap,diet control diabetes,restless leg History of Any Multi-Drug Resistant Organisms: None Reported Past Surgical History: Cholecystectomy, Heart Catheterization, Hernia Repair, Hysterectomy Additional Past Surgical History / Comment(s): doreen cornea transplants,doreen cataract,partial hyst,umbilical hernia repair, total thyroidectomy secondary to thyroid cancer 2012, breast biopsy, left heart catheterization 2014 with normal coronaries. Past Anesthesia/Blood Transfusion Reactions: No Reported Reaction Additional Past Anesthesia/Blood Transfusion Reaction / Comm: no hx blood transfusion Smoking Status: Never smoker Past Alcohol Use History: None Reported Past Drug Use History: None Reported - Past Family History Father Family Medical History: Renal Disease (father at age of 76 from acute renal failure.) Mother Family Medical History: Dementia (mother at age of 94 from myocardial infarction, dementia and diabetes type 2.), Diabetes Mellitus, Myocardial Infarction (MS) Brother(s) Family Medical History: Coronary Artery Disease (CAD) (patient has 3 brothers one of them with CAD.) Son(s) Family Medical History: Rheumatoid Arthritis (RA) (patient has one son with rheumatoid arthritis.) Daughter(s) Family Medical History: No Reported History (patient has one daughter no major medical problems and 3 stepdaughters as well.) Medications and Allergies Home Medications Medication Instructions Recorded Confirmed Type Aspirin [Adult Low Dose Aspirin EC] 81 mg PO DAILY 07/11/15 04/22/17 History Cyanocobalamin [Vitamin B-12] 2,500 mcg PO HS 07/11/15 04/22/17 History Glucosamine/Chondr Downs A Sod [Osteo 1 tab PO DAILY 07/11/15 04/22/17 History Bi-Flex Caplet] Levothyroxine Sodium [Synthroid] 112 mcg PO QAM 07/11/15 04/22/17 History Metolazone [Zaroxolyn] 2.5 mg PO DAILY 07/11/15 04/22/17 History Metoprolol Tartrate 25 mg PO BID 07/11/15 04/22/17 History Montelukast [Singulair] 10 mg PO HS 07/11/15 04/22/17 History Multivit-Min/FA/Lycopen/Lutein 1 tab PO DAILY 07/11/15 04/22/17 History [Centrum Silver Tablet] Pravastatin Sodium [Pravachol] 80 mg PO HS 07/11/15 04/22/17 History Raloxifene HCl 60 mg PO DAILY 07/11/15 04/22/17 History prednisoLONE ACETATE 1% OPHTH 2 drops BOTH EYES Q7D 07/11/15 04/22/17 History [Pred Forte 1%] rOPINIRole HCL [Requip] 1 mg PO HS 07/11/15 04/22/17 History Fluticasone Nasal [place] [Flonase 1 spray EA NOSTRIL DAILY PRN 09/10/16 04/22/17 History Nasal [place]] Isosorbide Mononitrate ER [Imdur] 30 mg PO QAM 09/10/16 04/22/17 History Methylphenidate HCl 10 mg PO DAILY PRN 04/17/17 04/22/17 History Mometasone/Formoterol [Dulera 200 2 puff INHALATION RT-BID PRN 04/17/17 History Mcg/5 Mcg Inhaler] HYDROcodone/APAP 7.5-325MG [[place] 1 tab PO Q6HR PRN 04/22/17 04/22/17 History 7.5] cycloSPORINE [Restasis] 1 applicator BOTH EYES BID 04/22/17 04/22/17 History Allergies Allergy/AdvReac Type Severity Reaction Status Date / Time No Known Allergies Allergy Verified 04/22/17 13:31 Physical Exam Vitals: Vital Signs Temp Pulse Resp BP Pulse Ox 04/22/17 13:33 72 16 104/51 91 L 04/22/17 13:15 65 16 107/55 99 04/22/17 13:03 59 L 16 101/50 100 04/22/17 12:45 60 16 113/56 100 04/22/17 12:40 97.3 F L 66 18 113/55 99 04/22/17 10:20 69 16 100 04/22/17 09:50 97.6 F 76 16 130/58 96 Intake and Output 04/22/17 04/22/17 04/22/17 06:59 14:59 22:59 Intake Total 1351 Output Total 250 Balance 1101 Intake: IV 1351 Output: Urine 50 Estimated Blood Loss 200 - Constitutional General appearance: average body habitus, no acute distress - EENT Eyes: anicteric sclerae, EOMI, PERRLA, no ptosis, no scleral icterus, normal appearance ENT: hearing grossly normal, NA/AT, normal oropharynx, no thrush, no tonsillar exudates Ears: bilateral: normal - Neck Neck: no lymphadenopathy, normal ROM, no rigidity, no stridor, no thyromegaly ( thyroidectomy) Carotids: bilateral: upstroke normal Thyroid: bilateral: normal size - Respiratory Respiratory: bilateral: diminished, negative: dullness, rales, rhonchi, wheezing , prolonged expiration, prolonged inspiration - Cardiovascular Rhythm: regular Heart sounds: normal: S1, S2 Abnormal Heart Sounds: no systolic murmur, no diastolic murmur, no S3 Gallop, no S4 Gallop, no click - Gastrointestinal General gastrointestinal: normal bowel sounds, soft, no splenomegaly, no tenderness, no umbilical hernia, no ventral hernia - Integumentary Integumentary: normal, normal turgor - Neurologic Neurologic: CNII-XII intact - Musculoskeletal Musculoskeletal: strength equal bilaterally - Psychiatric Psychiatric: A&O x's 3, appropriate affect, intact judgment & insight Results Labs: Abnormal Lab Results - Last 24 Hours (Table) 04/22/17 04/22/17 Range/Units 09:43 12:56 POC Glucose (mg/dL) 127 H 164 H (75-99) mg/dL Assessment and Plan Plan: Assessment and plan : 1. Post operative day #0 post left total knee arthroplasty. Continue incentive spirometer to reduce the incidence of atelectasis and hospital- acquired pneumonia, DVT prophylaxis per orthopedic service, physical therapy evaluation tomorrow morning, [place] catheter will be removed tomorrow morning, continue current pain management as outlined by orthopedic surgery. 2. Hypothyroidism. Continue Synthroid 112 g orally once every day. 3. Asthma/ALLERGIC rhinitis. Continue singulair 10 mg orally bedtime as well as Dulera 200/5 g 2 puffs inhalation twice every day. 4. Restless leg syndrome. Continue ropinirole 1 mg orally at bedtime. 5. Diabetes mellitus type 2 diet-controlled. Monitor the patient BGM each meal and at bedtime. 6. Hypertension and hypertensive cardiovascular disease. Continue patient on metoprolol 25 mg orally twice every day. 7. Obstructive sleep apnea. Patient is no longer uses her CPAP. 8. Osteoporosis. Currently on Evista 60 mg orally once every day we will hold while she is in the hospital. 9. Hyperlipidemia. Continue pravastatin 80 mg orally bedtime. 10. DVT prophylaxis. Patient is currently on Lovenox 30 mg subcutaneously twice every day, and she may need to be transitioned to either Xarelto or aspirin. 11. GI prophylaxis. Continue Pepcid 20 mg orally once every day. 12. Thank you Dr. Carlton for allowing us to participate in the care of your patient, we will follow the patient along with you.
[2017-04-22] MEDS: SODIUM CHLORIDE 0.9% 1,000 ML IV SCH (15:48)
[2017-04-22] MEDS: ceFAZolin 2 GM in SODIUM CHLORIDE 0.9% 100 ML IVPB SCH (19:12)
[2017-04-22] MEDS: traMADol 50 MG TAB PO SCH ×3 (19:13→21:40)
[2017-04-22] MEDS: cycloSPORINE 0.05% OPHTH 0.4 ML DROPERETTE BOTH EYES SCH (20:10)
[2017-04-22] MEDS: ENOXAPARIN 30 MG/0.3 ML SYRINGE SQ SCH (20:10)
[2017-04-22] MEDS: METOPROLOL TARTRATE 25 MG TAB PO SCH (20:11)
[2017-04-22] MEDS ORDERED: MONTELUKAST 10 MG TAB PO SCH (21:00)
[2017-04-22] MEDS ORDERED: CYANOCOBALAMIN 500 MCG TAB PO SCH (21:00)
[2017-04-22] MEDS ORDERED: SENNOSIDES-DOCUSATE SODIUM 1 EACH TAB PO SCH (21:00)
[2017-04-22] MEDS ORDERED: PRAVASTATIN SODIUM 80 MG TAB PO SCH (21:00)
[2017-04-23] MEDS: ceFAZolin 2 GM in SODIUM CHLORIDE 0.9% 100 ML IVPB SCH (02:28)
[2017-04-23] MEDS ORDERED: LEVOTHYROXINE 112 MCG TAB PO SCH (06:30)
[2017-04-23 07:41] VITALS: BP 97/63; PULSE 58; RESP 14; TEMP 97.9
[2017-04-23] MEDS: SODIUM CHLORIDE 0.9% 1,000 ML IV SCH (07:44)
[2017-04-23 07:47] LABS: Basophils % (A) 0 %; CH 31.8; CHCM 34.2; Eosinophils % (A) 0 %; HCT 33.6 % (34.0-46.0); HDW 2.75; HGB 11.3 gm/dL (11.4-16.0); Luc # (Auto) 0.19; Luc % (Auto) 2; Lymphocytes # (A) 1.2 k/uL (1.0-4.8); Lymphocytes % (A) 10 %; MCH 31.4 pg (25.0-35.0); MCHC 33.6 g/dL (31.0-37.0); MCV 93.4 fL (80.0-100.0); Mean Platelet Volume 8.6; Monocytes # (A) 0.9 k/uL (0-1.0); Monocytes % (A) 9 %; Neutrophils # (A) 8.8 k/uL (1.3-7.7); Neutrophils % (A) 79 %; RDW 13.7 % (11.5-15.5); WBC 11.1 k/uL (3.8-10.6); WBC (Perox) 11.03
[2017-04-23] MEDS: traMADol 50 MG TAB PO SCH ×2 (08:07→12:35)
[2017-04-23] MEDS: ENOXAPARIN 30 MG/0.3 ML SYRINGE SQ SCH (08:08)
[2017-04-23] MEDS: METOPROLOL TARTRATE 25 MG TAB PO SCH (08:09)
[2017-04-23] MEDS: cycloSPORINE 0.05% OPHTH 0.4 ML DROPERETTE BOTH EYES SCH (08:09)
[2017-04-23] MEDS ORDERED: MELOXICAM 7.5 MG TAB PO SCH (09:00)
[2017-04-23] MEDS ORDERED: ISOSORBIDE MONONITRATE ER 30 MG TAB.ER.24H PO SCH (09:00)
[2017-04-23] MEDS ORDERED: FAMOTIDINE 20 MG TAB PO SCH (09:00)
--- NOTE | 2017-04-23 10:46 | P.PN ---
Progress Note - Text 0732 anesthesia POD OD 1. Patient is status post left TKR under spinal anesthesia with a left adductor canal catheter placed for postoperative pain relief. With ropivacaine 0.2% running at 8 mL per hour the patient's VAS is (0 , 2). Catheter site is clean dry and intact.
[2017-04-23] MEDS ORDERED: MULTIVITAMINS, THERA 1 EACH TAB PO SCH (12:00)
--- NOTE | 2017-04-23 12:34 | P.PN ---
Subjective Principal diagnosis: Status post left total knee arthroplasty Patient is seen today resting in her hospital bed, she appears comfortable. Pain is well-controlled, she is in well with therapy. She is done stairs, urinary catheter discontinued she is urinating on her own. Denies headaches, lightheadedness, chest pain, shortness of breath, nausea or vomiting. Objective - Vital Signs Vital signs: Vital Signs Temp 97.9 F 04/23/17 07:00 Pulse 58 L 04/23/17 07:00 Resp 14 04/23/17 07:00 BP 97/63 04/23/17 07:00 Pulse Ox 93 L 04/23/17 00:55 Intake & Output 04/22/17 04/23/17 04/23/17 18:59 06:59 18:59 Intake Total 1351 1000 Output Total 250 1000 215 Balance 1101 0 -215 Weight 69.4 kg Intake: IV 1351 Intake, IV Titration 800 Amount Sodium Chloride 0.9% 1, 800 000 ml @ 50 mls/hr IV . Q20H [facility] Rx#:[id number] Oral 200 Output: Urine 50 1000 215 Uretheral ([place]) 215 Estimated Blood Loss 200 Other: Voiding Method Indwelling Catheter Indwelling Catheter Toilet - Exam Left lower extremity: Incisions clean, dry, and intact. Minimal soft tissue swelling present around the knee. Calf is soft, no tenderness with palpation. Plantar flexion, dorsiflexion, EHL, FHL are intact. Sensory exam to light touch throughout the extremities intact, dorsal pedis pulses 2+. - Labs CBC & Chem 7: 04/23/17 07:05 Labs: Abnormal Lab Results - Last 24 Hours (Table) 04/22/17 04/23/17 Range/Units 12:56 07:05 WBC 11.1 H (3.8-10.6) k/uL RBC 3.60 L (3.80-5.40) m/uL Hgb 11.3 L (11.4-16.0) gm/dL Hct 33.6 L (34.0-46.0) % Neutrophils # 8.8 H (1.3-7.7) k/uL POC Glucose (mg/dL) 164 H (75-99) mg/dL Assessment and Plan Plan: Assessment: 1. Postop day 1 status post left total knee arthroplasty Plan: 1. Pain control, we'll discharge her home on oral medication 2. Physical therapy and nursing after discharge 3. Daily dressing changes/ice and elevate. Wound care was discussed with patient 4. Encourage incentive spirometer 5. GI and DVT prophylaxis, we'll discharge home on aspirin 325 mg twice a day 6. Medical recommendations 7. Discharge planning: Patient will be discharged home today Time with Patient: Less than 30
--- NOTE | 2017-04-23 16:07 | P.PN ---
Subjective This is an 81-year-old female one of Dr. Salinas with a previous medical history significant for hyperlipidemia, asthma, ALLERGIC rhinitis, restless leg syndrome, obstructive sleep apnea, hypothyroidism post the thyroidectomy due to thyroid cancer back in 2012, osteoarthritis, patient underwent left total knee arthroplasty that was done successfully by and we were asked to see her for medical management. Patient is sitting up in bed in no apparent distress, she denies any chest pain , shortness of breath, she has no abdominal pain, nausea, vomiting, she is feeling good and she is asking to go home in the next 24 hours. 04/23: The patient is status post left total knee replacement. She was seen and evaluated today, she is doing well plan is for discharge home today. She'll start aspirin 325 twice a day for DVT prophylaxis. Objective - Vital Signs Vital signs: Vital Signs Temp 97.9 F 04/23/17 07:00 Pulse 58 L 04/23/17 07:00 Resp 14 04/23/17 07:00 BP 97/63 04/23/17 07:00 Pulse Ox 93 L 04/23/17 00:55 Intake & Output 04/22/17 04/23/17 04/23/17 18:59 06:59 18:59 Intake Total 1351 1000 Output Total 250 1000 215 Balance 1101 0 -215 Weight 69.4 kg Intake: IV 1351 Intake, IV Titration 800 Amount Sodium Chloride 0.9% 1, 800 000 ml @ 50 mls/hr IV . Q20H [facility] Rx#:[id number] Oral 200 Output: Urine 50 1000 215 Uretheral ([place]) 215 Estimated Blood Loss 200 Other: Voiding Method Indwelling Catheter Indwelling Catheter Toilet - Exam - Constitutional General appearance: average body habitus, no acute distress - EENT Eyes: anicteric sclerae, EOMI, PERRLA, no ptosis, no scleral icterus, normal appearance ENT: hearing grossly normal, NA/AT, normal oropharynx, no thrush, no tonsillar exudates Ears: bilateral: normal - Neck Neck: no lymphadenopathy, normal ROM, no rigidity, no stridor, no thyromegaly ( thyroidectomy) Carotids: bilateral: upstroke normal Thyroid: bilateral: normal size - Respiratory Respiratory: bilateral: diminished, negative: dullness, rales, rhonchi, wheezing , prolonged expiration, prolonged inspiration - Cardiovascular Rhythm: regular Heart sounds: normal: S1, S2 Abnormal Heart Sounds: no systolic murmur, no diastolic murmur, no S3 Gallop, no S4 Gallop, no click - Gastrointestinal General gastrointestinal: normal bowel sounds, soft, no splenomegaly, no tenderness, no umbilical hernia, no ventral hernia - Integumentary Integumentary: normal, normal turgor - Neurologic Neurologic: CNII-XII intact - Musculoskeletal Musculoskeletal: strength equal bilaterally - Psychiatric Psychiatric: A&O x's 3, appropriate affect, intact judgment & insight - Labs CBC & Chem 7: 04/23/17 07:05 Labs: Abnormal Lab Results - Last 24 Hours (Table) 04/22/17 04/23/17 Range/Units 12:56 07:05 WBC 11.1 H (3.8-10.6) k/uL RBC 3.60 L (3.80-5.40) m/uL Hgb 11.3 L (11.4-16.0) gm/dL Hct 33.6 L (34.0-46.0) % Neutrophils # 8.8 H (1.3-7.7) k/uL POC Glucose (mg/dL) 164 H (75-99) mg/dL Assessment and Plan Plan: 1. Post operative day #1 post left total knee arthroplasty. Continue incentive spirometer to reduce the incidence of atelectasis and hospital- acquired pneumonia, DVT prophylaxis per orthopedic service, physical therapy, continue current pain management as outlined by orthopedic surgery. 2. Hypothyroidism. Continue Synthroid 112 g orally once every day. 3. Asthma/ALLERGIC rhinitis. Continue singulair 10 mg orally bedtime as well as Dulera 200/5 g 2 puffs inhalation twice every day. 4. Restless leg syndrome. Continue ropinirole 1 mg orally at bedtime. 5. Diabetes mellitus type 2 diet-controlled. Monitor the patient BGM each meal and at bedtime. 6. Hypertension and hypertensive cardiovascular disease. Continue patient on metoprolol 25 mg orally twice every day. 7. Obstructive sleep apnea. Patient is no longer uses her CPAP. 8. Osteoporosis. Currently on Evista 60 mg orally once every day we will hold while she is in the hospital. 9. Hyperlipidemia. Continue pravastatin 80 mg orally bedtime. 10. DVT prophylaxis. Patient is currently on Lovenox 30 mg subcutaneously twice every day, and she may need to be transitioned to either Xarelto or aspirin. 11. GI prophylaxis. Continue Pepcid 20 mg orally once every day. 12. Thank you Dr. Carlton for allowing us to participate in the care of your patient, we will follow the patient along with you. The above impression and plan of care have been discussed and directed by signing physician. Dian Ortiz nurse practitioner acting as scribe for signing physician.
[2017-04-28] MEDS ORDERED: prednisoLONE ACETATE 1% OPHTH DROPS 1 ML BTL BOTH EYES SCH (09:00)
== END 2017-04-23 13:40 | disposition home health service (06) | DRG 470 ==
LOC: 2ORMAIN 08:13 → 3SUR 12:20
PROVIDERS: ADMIT Orthopaedic Surgery; ATTEND Orthopaedic Surgery
PROC: 0SRD0J9 Replacement of Left Knee Joint with Synthetic Substitute, Cemented, Open Approach (ICD-10-PCS; principal; 2017-04-22 10:10)
DX: M17.12 Unilateral primary osteoarthritis, left knee (principal); I11.9 Hypertensive heart disease without heart failure; E11.9 Type 2 diabetes mellitus without complications; E89.0 Postprocedural hypothyroidism; E78.5 Hyperlipidemia, unspecified; G25.81 Restless legs syndrome; G47.33 Obstructive sleep apnea (adult) (pediatric); J45.909 Unspecified asthma, uncomplicated; K21.9 Gastro-esophageal reflux disease without esophagitis; M81.0 Age-related osteoporosis without current pathological fracture; Z79.4 Long term (current) use of insulin; Z79.51 Long term (current) use of inhaled steroids; Z79.82 Long term (current) use of aspirin; Z79.899 Other long term (current) drug therapy; Z82.49 Family history of ischemic heart disease and other diseases of the circulatory system; Z83.3 Family history of diabetes mellitus; Z84.1 Family history of disorders of kidney and ureter; Z85.850 Personal history of malignant neoplasm of thyroid; Z79.84 Long term (current) use of oral hypoglycemic drugs
CPT/HCPCS: 85025; 94760

== ENCOUNTER → 2017-08-29 | Outpatient (CLI) | payer MEDICARE ==
--- NOTE | 2017-08-30 10:51 | MM ---
Reason for exam: screening (asymptomatic). Last mammogram was performed 1 year and 3 months ago. History: Patient is postmenopausal and has history of other cancer at age 75. Benign right mammotome panel of the right breast, April 04, 2011. Benign left mammotome panel of the left breast, June 25, 2005. Benign right mammotome panel of the right breast, June 25, 2005. Benign stereotactic core biopsy of the right breast, October 15, 2000. Taking other hormone. Physical Findings: A clinical breast exam by your physician is recommended on an annual basis and results should be correlated with mammographic findings. MG 3D Screening Mammo W/Cad Bilateral CC and MLO view(s) were taken. Prior study comparison: May 18, 2016, bilateral MG 3d screening mammo w/cad. May 16, 2015, bilateral MG screening mammo w CAD. There are scattered fibroglandular densities. Finding: There are typically benign round, grouped/clustered and diffuse calcifications in both breasts. Previous mammotome biopsy in the right and left breast. There is a chronic nodularity in the left breast. There is no discrete abnormality. ASSESSMENT: Benign, BI-RAD 2 RECOMMENDATION: Routine screening mammogram of both breasts in 1 year.
--- NOTE | 2017-09-02 08:55 | BD ---
EXAMINATION TYPE: MG DEXA axial skeleton. DATE OF EXAM: 08/29/2017 COMPARISON: 05.18.2016 CLINICAL HISTORY: 82 YR OLD FEMALE, HX OSTEOPOROSIS Height: 60.5 Weight: 144 FRAX RISK QUESTIONS: Alcohol (3 or more units per day): NO Family History (Parent hip fracture): NO Glucocorticoids (More than 3mos): YES (Ex: prednisone, prednisolone, methylprednisolone, dexamethasone, and hydrocortisone). History of Fracture in Adulthood: NO Secondary Osteoporosis: NO 1. Type 1 Diabetes: NO 2. Hyperthyroidism: NO 3. Menopause before 45: NO 4. Malnutrition: NO 5. Chronic liver disease: NO Rheumatoid Arthritis: NO Current Tobacco Use: NO RISK FACTORS HISTORY OF: Family History of Osteoporosis: UNKNOWN Active: ELDERLY Diet low in dairy products/other sources of calcium: YES Postmenopausal woman: 51 Lost more than 2 inches in height since high school: YES Frequent falls: ELDERLY Hyperparathyroidism: NO Adrenal Insufficiency: NO MEDICATIONS: Prednisone or other steroids: YES How Long: YRS Thyroid Medications: YES SYNTHROID How Long: YRS Additional Medications: STEROIDS, ASTHMA, CALCIUM AND VIT D Additional History: DIABETIC, DIET CONTROLED EXAM MEASUREMENTS: Bone mineral densitometry was performed using the [employer] System. Bone mineral density as measured about the Lumbar spine is: ----- L1-L4(G/cm2): 1.195 T Score Values are as follows: ----- L1: -0.1 ----- L2: 0.2 ----- L3: 0.0 ----- L4: 0.2 ----- L1-L4: 0.1 Bone mineral density has: Increased 6.0% since study of: 05.18.2016 Bone mineral density about the R hip (g/cm2): 0.853 Bone mineral density about the L hip (g/cm2): 0.885 T Score values are as follows: -----R Neck: -1.4 -----L Neck: -1.4 -----R Total: -1.2 -----L Total: -1.0 Bone mineral density has: Decreased -2.8% since study of: 05.18.2016 FRAX%S: THERE IS A 19.2% CHANCE OF A MAJOR OSTEOPOROTIC FX AND A 5.5% OF HIP FX......PROBABILITY OF FX IN 10 YRS TIME IMPRESSION: Osteopenia (T Score between -2.5 and -1 as noted by T score values There is slightly increased risk of fracture and the patient may be considered for treatment. Re-Screen 2-5 years. NOTE: T-SCORE=SD OF THE YOUNG ADULT MEAN.
== END | disposition home or self-care (01) ==
LOC: RADMAMWWP 14:55
PROVIDERS: ATTEND Family Medicine
DX: Z12.31 Encounter for screening mammogram for malignant neoplasm of breast (principal); N95.1 Menopausal and female climacteric states; M85.88 Other specified disorders of bone density and structure, other site
CPT/HCPCS: 77063; 77067; 77080

== ENCOUNTER → 2018-09-19 | Outpatient (CLI) | payer MEDICARE ==
--- NOTE | 2018-09-23 09:33 | MM ---
Reason for exam: screening (asymptomatic). Last mammogram was performed 1 year and 1 month ago. History: Patient is postmenopausal and has history of other cancer at age 77. Benign right mammotome panel of the right breast, April 04, 2011. Benign left mammotome panel of the left breast, June 25, 2005. Benign right mammotome panel of the right breast, June 25, 2005. Benign stereotactic core biopsy of the right breast, October 15, 2000. Taking other hormone. Physical Findings: A clinical breast exam by your physician is recommended on an annual basis and results should be correlated with mammographic findings. MG 3D Screening Mammo W/Cad Bilateral CC and MLO view(s) were taken. Prior study comparison: August 29, 2017, bilateral MG 3d screening mammo w/cad. May 18, 2016, bilateral MG 3d screening mammo w/cad. There are scattered fibroglandular densities. Previous mammotome biopsy in the right breast x3 and in the left breast x1. There is chronic nodularity in the right breast. Stable multiple groups of course calcifications. No significant changes when compared with prior studies. ASSESSMENT: Benign, BI-RAD 2 RECOMMENDATION: Routine screening mammogram of both breasts in 1 year.
== END ==
LOC: RADMAMWWP 14:29
PROVIDERS: ATTEND Family Medicine
DX: Z12.31 Encounter for screening mammogram for malignant neoplasm of breast (principal)
CPT/HCPCS: 77063; 77067

== ENCOUNTER → 2019-09-21 | Outpatient (CLI) | payer MEDICARE ==
--- NOTE | 2019-09-23 09:30 | MM ---
Reason for exam: screening (asymptomatic). Last mammogram was performed 1 year ago. History: Patient is postmenopausal and has history of other cancer at age 77. Benign right mammotome panel of the right breast, April 04, 2011. Benign left mammotome panel of the left breast, June 25, 2005. Benign right mammotome panel of the right breast, June 25, 2005. Benign stereotactic core biopsy of the right breast, October 15, 2000. Taking other hormone. Physical Findings: A clinical breast exam by your physician is recommended on an annual basis and results should be correlated with mammographic findings. MG 3D Screening Mammo W/Cad Bilateral CC and MLO view(s) were taken. Prior study comparison: September 19, 2018, bilateral MG 3d screening mammo w/cad. August 29, 2017, bilateral MG 3d screening mammo w/cad. There are scattered fibroglandular densities. Previous mammotome biopsy in the right breast x 3 and in the left breast. There is chronic nodularity in the left breast. Multiple clustered round and punctate calcifications are unchanged. ASSESSMENT: Benign, BI-RAD 2 RECOMMENDATION: Routine screening mammogram of both breasts in 1 year.
== END | disposition home or self-care (01) ==
LOC: RADMAMWWP 12:54
PROVIDERS: ATTEND Family Medicine
DX: Z12.31 Encounter for screening mammogram for malignant neoplasm of breast (principal)
CPT/HCPCS: 77063; 77067

== ENCOUNTER → 2020-06-16 | Outpatient (CLI) | payer MEDICARE ==
--- NOTE | 2020-06-16 14:25 | BD ---
EXAMINATION TYPE: Axial Bone Density DATE OF EXAM: 06/16/2020 COMPARISON: NONE CLINICAL HISTORY: M 81.0, N95.1 Height: 5 FT 1 IN Weight: 162 FRAX RISK QUESTIONS: Alcohol (3 or more units per day): NO Family History (Parent hip fracture): NO Glucocorticoids (More than 3mos): NO (Ex: prednisone, prednisolone, methylprednisolone, dexamethasone, and hydrocortisone). History of Fracture in Adulthood: NO Secondary Osteoporosis: 1. Type 1 Diabetes: NO 2. Hyperthyroidism: NO 3. Menopause before 45: NO 4. Malnutrition: NO 5. Chronic liver disease: NO Rheumatoid Arthritis: YES Current Tobacco Use: NO RISK FACTORS HISTORY OF: Family History of Osteoporosis: NO Active: YES Diet low in dairy products/other sources of calcium: NO Postmenopausal woman: AGE 51 Take estrogen and/or progesterone medications: NONE Lost more than 2 inches in height since high school: YES Frequent falls: NO Poor Health: NO MEDICATIONS: Thyroid Medications: YES Which medication: LEVOTHYROXINE How Lon-5 YEARS Additional Medications: LEVOTHYROXINE, MONTELUKAST, ROPINIRALE, FUROSEMIDE, ALLUPURINOL, ISODORB MONO , METOPROLOL, RALOXIFINE, PREVASTATIN, ASPIRIN, POTACHLORIDE, RESTASIS, PRESERVISION Additional History: THYROID CANCER REMOVED 4-5 YEARS AGO EXAM MEASUREMENTS: Bone mineral densitometry was performed using the [employer] System. Bone mineral density as measured about the Lumbar spine is: ----- L1-L4(G/cm2): 1.156 T Score Values are as follows: ----- L2: 0.2 ----- L3: -0.3 ----- L4: -0.5 ----- L1-L4: -0.2 Bone mineral density has: DECREASED -3.6 % since study of: 2018 Bone mineral density about the R hip (g/cm2): 0.779 Bone mineral density about the L hip (g/cm2): 0.808 T Score values are as follows: -----R Neck: -1.9 -----L Neck: -1.7 -----R Total: -1.2 -----L Total: -0.9 Bone mineral density has: INCREASED 0.5 % since study of: 2018 IMPRESSION: Osteopenia (T Score between -2.5 and -1). There is slightly increased risk of fracture and the patient may be considered for treatment. Re-Screen 2-5 years. NOTE: T-SCORE=SD OF THE YOUNG ADULT MEAN.
== END | disposition home or self-care (01) ==
LOC: RADBDWWP 13:03
PROVIDERS: ATTEND Family Medicine
DX: M81.0 Age-related osteoporosis without current pathological fracture (principal); M85.80 Other specified disorders of bone density and structure, unspecified site; N95.1 Menopausal and female climacteric states
CPT/HCPCS: 77080

== ENCOUNTER → 2020-12-15 | Outpatient (CLI) | payer MEDICARE ==
--- NOTE | 2020-12-16 13:13 | MM ---
Reason for exam: screening (asymptomatic). Last mammogram was performed 1 year and 3 months ago. History: Patient is postmenopausal and has history of other cancer at age 77. Benign right mammotome panel of the right breast, April 04, 2011. Benign left mammotome panel of the left breast, June 25, 2005. Benign right mammotome panel of the right breast, June 25, 2005. Benign stereotactic core biopsy of the right breast, October 15, 2000. Taking other hormone. Physical Findings: A clinical breast exam by your physician is recommended on an annual basis and results should be correlated with mammographic findings. MG 3D Screening Mammo W/Cad Bilateral CC and MLO view(s) were taken. Prior study comparison: September 21, 2019, bilateral MG 3d screening mammo w/cad. September 19, 2018, bilateral MG 3d screening mammo w/cad. There are scattered fibroglandular densities. Stable benign calcifications. There is no discrete abnormality. No significant changes when compared with prior studies. ASSESSMENT: Benign, BI-RAD 2 RECOMMENDATION: Routine screening mammogram of both breasts in 1 year.
== END | disposition home or self-care (01) ==
LOC: RADMAMWWP 08:37
PROVIDERS: ATTEND Family Medicine
DX: Z12.31 Encounter for screening mammogram for malignant neoplasm of breast (principal); Z78.0 Asymptomatic menopausal state
CPT/HCPCS: 77063; 77067

== ENCOUNTER → 2021-01-12 | Outpatient (CLI) | payer MEDICARE ==
[2021-01-12 10:28] LABS: Appearance,Urine Clear (Clear); Bacteria,Urine Rare /hpf; Bilirubin,Urine Negative (Negative); Blood,Urine Negative (Negative); Color,Urine Yellow; Glucose,Urine (UA) Negative (Negative); Ketones,Urine Negative (Negative); Leukocyte Esterase,Urine Large (Negative); Mucus,Urine Rare /hpf; Nitrite,Urine Negative (Negative); PH, Urine 5.5 (5.0-8.0); Protein,Urine Negative (Negative); Specific Gravity,Urine 1.021 (1.001-1.035); Squamous Epithelial Cell,Urine 3 /hpf (0-4); Urobilinogen,Urine <2.0 mg/dL (<2.0); WBC,Urine 10 /hpf (0-5)
[2021-01-12 15:50] LABS: Basophils # (A) 0.05 X 10*3/uL (0.00-0.10); Basophils % (A) 0.8 %; Eosinophils # (A) 0.12 X 10*3/uL (0.04-0.35); Eosinophils % (A) 1.8 %; HCT 38.8 % (37.2-46.3); HGB 12.6 g/dL (12.0-15.0); Lymphocytes # (A) 1.59 X 10*3/uL (0.90-5.00); Lymphocytes % (A) 24.2 %; MCH 31.9 pg (27.0-32.0); MCHC 32.5 g/dL (32.0-37.0); MCV 98.2 fL (80.0-97.0); Mean Platelet Volume 11.9 fL (9.5-12.2); Monocytes % (A) 12.2 %; Neutrophils # (A) 3.99 X 10*3/uL (1.80-7.70); Neutrophils % (A) 60.7 %; Platelet Count 201 X 10*3/uL (140-440); RBC 3.95 X 10*6/uL (4.10-5.20); RDW 13.3 % (11.5-14.5); WBC 6.57 X 10*3/uL (4.50-10.00)
[2021-01-12 16:23] LABS: Urine Creatinine 102.2 mg/dL
[2021-01-12 18:37] LABS: % Iron Saturation 21.14 (12.00-45.00); African American GFR (CKD) 52.6 (60.0-200.0); Albumin/Globulin Ratio 1.67 (1.60-3.17); Anion Gap 7.5 mmol/L (4.00-12.00); BUN/Creat Ratio 23.64 Ratio (12.00-20.00); Calcium 9.5 mg/dL (8.7-10.3); Carbon Dioxide 27.5 mmol/L (21.6-31.8); Chol/HDL Ratio 3.69; Globulin 2.4 g/dL (1.6-3.3); LDL Cholesterol,Calculated 89.2 mg/dL (0.0-131.0); Non-African American GFR(CKD) 45.4 (60.0-200.0); Potassium 4.3 mmol/L (3.5-5.5); Total Bilirubin 0.4 mg/dL (0.2-1.2); Total Protein 6.4 g/dL (6.2-8.2); Uric Acid 6.5 mg/dL (2.9-7.7); VLDL Calculation 23.8 mg/dL (5.00-40.00)
[2021-01-12 18:45] LABS: T4, Free (Free Thyroxine) 1.2 ng/dL (0.80-1.80)
[2021-01-12 18:55] LABS: Hemoglobin A1C 6.4 % (4.0-6.0)
[2021-01-12 21:17] LABS: Protein, Total 6.6 g/dL (6.2-8.2)
[2021-01-13 12:44] LABS: Free Kappa Lt Chain Qnt, Serum 3.49 mg/dL (0.33-1.94)
[2021-01-13 13:48] LABS: Albumin 3.66 g/dL (3.80-4.90); Gamma Globulin 0.96 g/dL (0.70-1.50)
== END | disposition home or self-care (01) ==
LOC: LABWHC1 09:11
PROVIDERS: ATTEND Family Medicine
DX: C73 Malignant neoplasm of thyroid gland (principal); E11.22 Type 2 diabetes mellitus with diabetic chronic kidney disease; G47.30 Sleep apnea, unspecified; R22.0 Localized swelling, mass and lump, head; N18.30 Chronic kidney disease, stage 3 unspecified
CPT/HCPCS: 36415; 80053; 80061; 81001; 82043; 82306; 82550; 82570; 82607; 83036; 83540; 83550; 83883; 83970; 84165; 84432; 84439; 84443; 84550; 85025; 86334

== ENCOUNTER → 2021-01-16 | Outpatient (CLI) | payer MEDICARE ==
--- NOTE | 2021-01-16 20:43 | CT ---
EXAMINATION TYPE: CT brain wo/w con DATE OF EXAM: 01/16/2021 COMPARISON: CT 10/13/2013 HISTORY: Pt has lump back of LT side of head, has had since age 25. Never has bothered her until rece ntly. Localized swelling, mass. Pt also c/o recent falls. Isovue 300/80 ml. Prior in PACS CT DLP: 2163.20 mGycm Automated exposure control for dose reduction was used. CONTRAST: CT scan of the head is performed with IV Contrast, patient injected with 80 mL of Isovue 300. FINDINGS: Focal excrescence noted at the posterior calvarium on the left is stable compared to prior exam and is consistent with osteoma. Periventricular white matter shows patchy low attenuation. There are cerebral vascular calcifications. Cortical atrophy is again noted. No abnormal enhancement follo wing contrast administration. There is no abnormal enhancing mass or midline shift identified. The ventricles and sulci are within normal limits in size. The globes are intact and the visualized sinuses are clear. IMPRESSION: Stable bony excrescence shows a benign appearance, likely osteoma. Periventricular white matter shows patchy low attenuation as on prior exam may be due to chronic small vessel ischemic changes, there i s age-related atrophy.
== END | disposition home or self-care (01) ==
LOC: RADCTMAIN 18:26
PROVIDERS: ATTEND Family Medicine
DX: R22.0 Localized swelling, mass and lump, head (principal)
CPT/HCPCS: 70470; Q9967

== ENCOUNTER → 2021-02-20 | Outpatient (CLI) | payer MEDICARE ==
--- NOTE | 2021-02-20 14:59 | XR ---
EXAMINATION TYPE: XR foot complete RT DATE OF EXAM: 02/20/2021 COMPARISON: None HISTORY: Pain right heel and calcaneus TECHNIQUE: 3 view right foot with additional calcaneal heel view FINDINGS: Hallux valgus deformity of the first digit is present. There is loss of joint space first d igit. No acute fractures are identified. Hammertoes are present. Small plantar calcaneal heel spur is present. Soft tissue swelling is over the ankle. IMPRESSION: 1. Calcaneal heel spur. 2. Hallux valgus deformity. 3. Hammer toes. 4. No acute osseous abnormality
== END | disposition home or self-care (01) ==
LOC: RADXRMAIN 14:13
PROVIDERS: ATTEND Family Medicine
DX: M77.31 Calcaneal spur, right foot (principal); M20.11 Hallux valgus (acquired), right foot; M20.41 Other hammer toe(s) (acquired), right foot

== ENCOUNTER → 2021-04-18 | Outpatient (CLI) | payer MEDICARE ==
--- NOTE | 2021-04-19 09:22 | XR ---
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 Patient shows left knee arthroplasty change. Bone mineralization is reduced. Osteoarthritic change no viktoriya in the right knee. Focal density at the level of the inferior pubic ramus on the right is stable. Surgical clips are present in the abdomen. Degenerative disc changes are noted within the visualized spine, there is associated facet arthropathy, slight spinal curvature is present in the lumbar spine , cervical spine is stable in appearance. There are changes of hyperostosis from talus interna within the calvarium. Chest x-ray shows no acute abnormality. Aorta is dense. IMPRESSION: No focal lytic abnormality is identified. Degenerative disc disease and facet arthropathy . Spinal curvature.
== END | disposition home or self-care (01) ==
LOC: RADXRMAIN 14:33
PROVIDERS: ATTEND Internal Medicine Hematology & Oncology
DX: M47.819 Spondylosis without myelopathy or radiculopathy, site unspecified (principal); M17.11 Unilateral primary osteoarthritis, right knee
CPT/HCPCS: 77075

== ENCOUNTER → 2022-02-23 | Outpatient (CLI) | payer MEDICARE ==
--- NOTE | 2022-02-26 10:31 | MM ---
Reason for Exam: Screening (asymptomatic). Last mammogram was performed 1 year(s) and 2 month(s) ago. Patient History: Menarche at age 13. First Full-Term at age 25. Hysterectomy at age 65. Postmenopausal. Other cancer, age 77. 04/04/2011, Benign Core Biopsy on the right side. 06/25/2005, Benign Core Biopsy on the left side. 06/25/2005, Benign Core Biopsy on the right side. 10/15/2000, Benign Stereotactic Core Biopsy on the right side. Prior Study Comparison: 05/18/2016 Bilateral Screening Mammogram, [facility]. 08/29/2017 Bilateral Screening Mammogram, [facility]. 09/19/2018 Bilateral Screening Mammogram, [facility]. 09/21/2019 Bilateral Screening Mammogram, [facility]. 12/15/2020 Bilateral Screening Mammogram, [facility]. Tissue Density: There are scattered fibroglandular densities. Findings: Analyzed By CAD. 3 microclips within the right breast from prior biopsies. One microclip in the left breast. Scattered benign round and punctate and some grouped microcalcifications remain unchanged. Chronic nodularity right breast. No significant change from prior exams. Overall Assessment: Benign, BI-RAD 2 Management: Screening Mammogram of both breasts in 1 year. 1. Patient should continue monthly self breast exams. 2. A clinical breast exam by your physician is recommended on an annual basis. 3. This exam should not preclude additional follow-up of suspicious palpable abnormalities. Electronically signed and approved by: Vicente Bush M.D. Radiologist
== END | disposition home or self-care (01) ==
LOC: RADMAMWWP 13:37
PROVIDERS: ATTEND Family Medicine
DX: Z12.31 Encounter for screening mammogram for malignant neoplasm of breast (principal); Z78.0 Asymptomatic menopausal state
CPT/HCPCS: 77063; 77067

== ENCOUNTER 2022-11-02 11:23 | Observation (INO) | payer MEDICARE ==
[2022-11-02] MEDS ORDERED: SODIUM CHLORIDE 0.9% 1,000 ML IV STA (11:48)
[2022-11-02] MEDS ORDERED: KETOROLAC 15 MG/ML 1 ML VIAL IVP STA (11:48)
--- NOTE | 2022-11-02 11:58 | ED ---
Abdominal Pain HPI - General Chief Complaint: Abdominal Pain Stated Complaint: Side Pain Time Seen by Provider: 11/02/22 11:42 Source: patient, family, RN notes reviewed Mode of arrival: wheelchair Limitations: no limitations - History of Present Illness Initial Comments: This is an 87-year-old female who presents to the emergency department with right lower quadrant pain. Patient states that this started suddenly early this morning when she was making coffee. Denies any history of similar symptoms in the past. She did throw up once. Denies any diarrhea, but states that she has been constipated for the last couple of days. Denies any history of similar symptoms in the past. Pain is worse when trying to move or ambulate. She's not measured any fevers. Denies any fevers, chills, sore throat, cough, dyspnea, chest pain, palpitati ons, diarrhea, back pain, or headaches. MD Complaint: abdominal pain Location: RLQ Associated Symptoms: nausea, constipation - Related Data Home Medications Medication Instructions Recorded Confirmed Cyanocobalamin [Vitamin B-12] 500 mcg PO HS 07/11/15 11/02/22 Glucosamine/Chondr Downs A Sod [Osteo 1 tab PO DAILY 07/11/15 11/02/22 Bi-Flex Caplet] Metoprolol Tartrate 25 mg PO BID 07/11/15 11/02/22 Montelukast [Singulair] 10 mg PO HS 07/11/15 11/02/22 Multivit-Min/FA/Lycopen/Lutein 1 tab PO DAILY 07/11/15 11/02/22 [Centrum Silver Tablet] Pravastatin Sodium [Pravachol] 80 mg PO HS 07/11/15 11/02/22 rOPINIRole HCL [Requip] 1.5 mg PO HS 07/11/15 11/02/22 Fluticasone Nasal [place] [Flonase 2 spray EA NOSTRIL DAILY 09/10/16 11/02/22 Nasal [place]] Isosorbide Mononitrate ER [Imdur] 30 mg PO QAM 09/10/16 11/02/22 Aspirin EC [Ecotrin Low Dose] 81 mg PO DAILY 11/02/22 11/02/22 Jonathan/D3/Mag11/Zinc/Mixer Pigment/Stephane/Bor 1 tab PO DAILY 11/02/22 11/02/22 [Caltrate 600+D Plus Tablet] Diclofenac Sodium [Voltaren 2 gm TOPICAL QID PRN 11/02/22 11/02/22 Arthritis Pain 1% Gel] Furosemide [Lasix] 20 mg PO BID 11/02/22 11/02/22 Levothyroxine Sodium 125 mcg PO DAILY 11/02/22 11/02/22 Potassium Chloride [Klor-Con M10] 10 meq PO BID 11/02/22 11/02/22 Raloxifene HCl 60 mg PO DAILY 11/02/22 11/02/22 allopurinoL [Zyloprim] 300 mg PO DAILY 11/02/22 11/02/22 Allergies Allergy/AdvReac Type Severity Reaction Status Date / Time No Known Allergies Allergy Verified 11/02/22 15:04 Review of Systems ROS Statement: Those systems with pertinent positive or pertinent negative responses have been documented in the HPI. ROS Other: All systems not noted in ROS Statement are negative. Past Medical History Past Medical History: Asthma, Diabetes Mellitus, Hyperlipidemia, Hypertension, Osteoarthritis (OA), Sleep Apnea/CPAP/BIPAP Additional Past Medical History / Comment(s): varicose veins rt leg,no longer uses cpap,diet control diabetes,restless leg History of Any Multi-Drug Resistant Organisms: None Reported Past Surgical History: Cholecystectomy, Heart Catheterization, Hernia Repair, Hysterectomy Additional Past Surgical History / Comment(s): doreen cornea transplants,doreen cataract,partial hyst,umbilical hernia repair, total thyroidectomy secondary to thyroid cancer 2012, breast biopsy, left heart catheterization 2014 with normal coronaries. Past Anesthesia/Blood Transfusion Reactions: No Reported Reaction Additional Past Anesthesia/Blood Transfusion Reaction / Comment(s): no hx blood transfusion Past Psychological History: No Psychological Hx Reported Smoking Status: Never smoker Past Alcohol Use History: None Reported Past Drug Use History: None Reported - Past Family History Mother Family Medical History: No Reported History Father Family Medical History: Renal Disease (father at age of 76 from acute renal failure.) Brother(s) Family Medical History: Coronary Artery Disease (CAD) (patient has 3 brothers one of them with CAD.) Son(s) Family Medical History: Rheumatoid Arthritis (RA) (patient has one son with rheumatoid arthritis.) Daughter(s) Family Medical History: No Reported History (patient has one daughter no major medical problems and 3 stepdaughters as well.) General Exam Limitations: no limitations General appearance: alert, in no apparent distress Head exam: Present: atraumatic, normocephalic, normal inspection Respiratory exam: Present: normal lung sounds bilaterally. Absent: respiratory distress, wheezes, rales, rhonchi, stridor Cardiovascular Exam: Present: regular rate, normal rhythm, normal heart sounds. Absent: systolic murmur, diastolic murmur, rubs, gallop, clicks GI/Abdominal exam: Present: soft, tenderness (RLQ), normal bowel sounds. Absent: distended Expanded GI/Abdominal exam: Present: obturator sign, Armijo's sign Neurological exam: Present: alert, oriented X3, CN II-XII intact Psychiatric exam: Present: normal affect, normal mood Skin exam: Present: warm, dry, intact, normal color. Absent: rash Course Vital Signs 11/02/22 11/02/22 11/02/22 11:35 13:00 15:00 Temperature 98 F Pulse Rate 103 H 99 96 Respiratory 20 18 18 Rate Blood Pressure 173/82 154/78 164/88 O2 Sat by Pulse 98 98 98 Oximetry Medical Decision Making - Medical Decision Making This is an 87-year-old female who presents to the emergency department for abdominal pain. Was pt. sent in by a medical professional or institution? @ -No Did you speak to anyone other than the patient for history? @ -No Did you review nursing and triage notes? @ -Yes, and I agree, it is accurate with regards to the patient's symptoms. Were old charts reviewed? @ -No Differential Diagnosis? @ -Differential Abdominal Pain Women: Appendicitis, Cholecystitis, diverticulosis, ischemic bowel, pancreatitis, hepatitis, UTI, gastroenteritis, AAA, incarcerated hernia, bowel obstruction, constipation, inflammatory bowel, hepatitis, peptic ulcer disease, splenic infarction, perforated viscus, vulvitis, ovarian torsion, PID, kidney stone, placenta abruption, this is not meant to be an all-inclusive list CT interpreted by me (1pt min.)? @ -Computed tomography scan of the abdomen and pelvis obtained. My interpretation identifies mild dilation of the appendix and otherwise no evidence of bowel wall thickening, ureteral calculus, or hydronephrosis. What testing was considered but not performed? (CT, X-rays, U/S, labs)? Why? @ -None What meds were considered but not given? Why? @ -None Did you discuss the management of the patient with other professionals? @ -Yes, Dr. Larose who accepts the patient for admission to observation. Will plan to watch patient overnight and evaluate for changes in clinical status. Did you reconcile home meds? @ -No Was smoking cessation discussed for >3mins.? @ -No Was critical care preformed (if so, how long)? @ -No Were there social determinants of health that impacted care today? How? (Homelessness, low income, unemployed, alcoholism, drug addiction, transportation, low edu. Level, literacy, decrease access to med. care, [facility], rehab)? @ -No Was there de-escalation of care discussed even if they declined? (Discuss DNR or withdrawal of care, Hospice)? @ -No What co-morbidities impacted this encounter? (DM, HTN, Smoking, COPD, CAD, Cancer, CVA, Hep., AIDS, mental health diagnosis, sleep apnea, morbid obesity)? @ -DM, HLD, HTN Was patient admitted / discharged? @ -Admitted. Lab work obtained and found to be nonactionable. Computed tomography scan of the abdomen and pelvis obtained. Findings revealed a mildly dilated appendix, which is more prominent from the computed tomography scan on at 09/14/22. She did have improvement with the Toradol. Symptoms are improved at rest, however they are still very painful if she tries to move whatsoever. Case discussed with Dr. Larose, who accepts the patient for admission overnight with plan to watch her and evaluate for any changes in clinical status in the event findings are reflective of an early appendicitis. Medicine consulted for medical management. Undiagnosed new problem with uncertain prognosis? @ -None Drug Therapy requiring intensive monitoring for toxicity (Heparin, Nitro, Insul in, Cardizem)? @ -None Were any procedures done? @ -None Diagnosis/symptom? @ -RLQ abdominal pain Acute, or Chronic, or Acute on Chronic? @ -Acute Uncomplicated (without systemic symptoms) or Complicated (systemic symptoms)? @ -Complicated Side effects of treatment? @ -None Exacerbation, Progression, or Severe Exacerbation] @ -Not applicable Poses a threat to life or bodily function? @ -This will depend on the etiology of her pain. This case was discussed in detail with the attending ED physician, Dr. Barillas. Presentation, findings, and treatment plan discussed in detail as well. - Lab Data Result diagrams: 11/02/22 13:24 11/02/22 13:24 Lab Results 11/02/22 11/02/22 11/02/22 Range/Units 13:24 13:24 13:24 WBC 6.1 (3.8-10.6) k/uL RBC 4.06 (3.80-5.40) m/uL Hgb 13.0 (11.4-16.0) gm/dL Hct 38.6 (34.0-46.0) % MCV 95.0 (80.0-100.0) fL MCH 32.1 (25.0-35.0) pg MCHC 33.8 (31.0-37.0) g/dL RDW 14.3 (11.5-15.5) % Plt Count 178 (150-450) k/uL MPV 8.9 Neutrophils % 77 % Lymphocytes % 14 % Monocytes % 6 % Eosinophils % 1 % Basophils % 0 % Neutrophils # 4.7 (1.3-7.7) k/uL Lymphocytes # 0.8 L (1.0-4.8) k/uL Monocytes # 0.3 (0-1.0) k/uL Eosinophils # 0.0 (0-0.7) k/uL Basophils # 0.0 (0-0.2) k/uL PT (9.0-12.0) sec INR (<1.2) APTT (22.0-30.0) sec Sodium 141 (137-145) mmol/L Potassium 4.2 (3.5-5.1) mmol/L Chloride 107 (98-107) mmol/L Carbon Dioxide 28 (22-30) mmol/L Anion Gap 6 mmol/L BUN 24 H (7-17) mg/dL Creatinine 0.99 (0.52-1.04) mg/dL Est GFR (CKD-EPI)AfAm 59 (>60 ml/min/1.73 sqM) Est GFR (CKD-EPI)NonAf 51 (>60 ml/min/1.73 sqM) Glucose 114 H (74-99) mg/dL Plasma Lactic Acid Danny 0.7 (0.7-2.0) mmol/L Calcium 8.9 (8.4-10.2) mg/dL Total Bilirubin 0.6 (0.2-1.3) mg/dL AST 22 (14-36) U/L ALT 19 (4-34) U/L Alkaline Phosphatase 73 (38-126) U/L Total Protein 6.4 (6.3-8.2) g/dL Albumin 3.5 (3.5-5.0) g/dL Amylase 65 (30-110) U/L Lipase 101 (23-300) U/L Urine Color Urine Appearance (Clear) Urine pH (5.0-8.0) Ur Specific [place] (1.001-1.035) Urine Protein (Negative) Urine Glucose (UA) (Negative) Urine Ketones (Negative) Urine Blood (Negative) Urine Nitrite (Negative) Urine Bilirubin (Negative) Urine Urobilinogen (<2.0) mg/dL Ur Leukocyte Esterase (Negative) Urine RBC (0-5) /hpf Urine WBC (0-5) /hpf Ur Squamous Epith Cells (0-4) /hpf 11/02/22 11/02/22 Range/Units 13:24 14:26 WBC (3.8-10.6) k/uL RBC (3.80-5.40) m/uL Hgb (11.4-16.0) gm/dL Hct (34.0-46.0) % MCV (80.0-100.0) fL MCH (25.0-35.0) pg MCHC (31.0-37.0) g/dL RDW (11.5-15.5) % Plt Count (150-450) k/uL MPV Neutrophils % % Lymphocytes % % Monocytes % % Eosinophils % % Basophils % % Neutrophils # (1.3-7.7) k/uL Lymphocytes # (1.0-4.8) k/uL Monocytes # (0-1.0) k/uL Eosinophils # (0-0.7) k/uL Basophils # (0-0.2) k/uL PT 9.8 (9.0-12.0) sec INR 0.9 (<1.2) APTT 21.4 L (22.0-30.0) sec Sodium (137-145) mmol/L Potassium (3.5-5.1) mmol/L Chloride (98-107) mmol/L Carbon Dioxide (22-30) mmol/L Anion Gap mmol/L BUN (7-17) mg/dL Creatinine (0.52-1.04) mg/dL Est GFR (CKD-EPI)AfAm (>60 ml/min/1.73 sqM) Est GFR (CKD-EPI)NonAf (>60 ml/min/1.73 sqM) Glucose (74-99) mg/dL Plasma Lactic Acid Danny (0.7-2.0) mmol/L Calcium (8.4-10.2) mg/dL Total Bilirubin (0.2-1.3) mg/dL AST (14-36) U/L ALT (4-34) U/L Alkaline Phosphatase (38-126) U/L Total Protein (6.3-8.2) g/dL Albumin (3.5-5.0) g/dL Amylase (30-110) U/L Lipase (23-300) U/L Urine Color Colorless Urine Appearance Clear (Clear) Urine pH 7.5 (5.0-8.0) Ur Specific [place] 1.005 (1.001-1.035) Urine Protein Negative (Negative) Urine Glucose (UA) Negative (Negative) Urine Ketones Negative (Negative) Urine Blood Negative (Negative) Urine Nitrite Negative (Negative) Urine Bilirubin Negative (Negative) Urine Urobilinogen <2.0 (<2.0) mg/dL Ur Leukocyte Esterase Moderate H (Negative) Urine RBC <1 (0-5) /hpf Urine WBC 13 H (0-5) /hpf Ur Squamous Epith Cells 2 (0-4) /hpf - Radiology Data Radiology results: report reviewed, image reviewed Disposition Clinical Impression: RLQ abdominal pain Disposition: ADMITTED IP TO THIS HOSP
[2022-11-02 13:35] LABS: Basophils % (A) 0 %; Eosinophils % (A) 1 %; HCT 38.6 % (34.0-46.0); Lymphocytes # (A) 0.8 k/uL (1.0-4.8); Lymphocytes % (A) 14 %; MCH 32.1 pg (25.0-35.0); MCHC 33.8 g/dL (31.0-37.0); Mean Platelet Volume 8.9; Monocytes # (A) 0.3 k/uL (0-1.0); Monocytes % (A) 6 %; Neutrophils # (A) 4.7 k/uL (1.3-7.7); Neutrophils % (A) 77 %; Platelet Count 178 k/uL (150-450); RBC 4.06 m/uL (3.80-5.40); RDW 14.3 % (11.5-15.5); WBC 6.1 k/uL (3.8-10.6)
[2022-11-02 14:01] LABS: INR 0.9 (<1.2); Prothrombin Time 9.8 sec (9.0-12.0)
[2022-11-02 14:02] LABS: Albumin 3.5 g/dL (3.5-5.0); Calcium 8.9 mg/dL (8.4-10.2); Potassium 4.2 mmol/L (3.5-5.1); Total Bilirubin 0.6 mg/dL (0.2-1.3); Total Protein 6.4 g/dL (6.3-8.2)
[2022-11-02 14:38] LABS: Appearance,Urine Clear (Clear); Bilirubin,Urine Negative (Negative); Blood,Urine Negative (Negative); Color,Urine Colorless; Glucose,Urine (UA) Negative (Negative); Ketones,Urine Negative (Negative); Leukocyte Esterase,Urine Moderate (Negative); Nitrite,Urine Negative (Negative); PH, Urine 7.5 (5.0-8.0); Protein,Urine Negative (Negative); RBC,Urine <1 /hpf (0-5); Specific Gravity,Urine 1.005 (1.001-1.035); Squamous Epithelial Cell,Urine 2 /hpf (0-4); Urobilinogen,Urine <2.0 mg/dL (<2.0); WBC,Urine 13 /hpf (0-5)
[2022-11-02 14:42] LABS: Partial Thromboplastin Time 21.4 sec (22.0-30.0)
--- NOTE | 2022-11-02 14:56 | CT ---
EXAMINATION TYPE: CT abdomen pelvis w con DATE OF EXAM: 11/02/2022 HISTORY: RLQ ABDOMINAL PAIN CT DLP: 801.2mGycm Automated Exposure Control for Dose Reduction was Utilized. CONTRAST: CT scan of the abdomen and pelvis is performed without oral and with IV Contrast, patient injected wi th 80 CC mL of Isovue 370. COMPARISON: CT abdomen and pelvis September 14, 2022 FINDINGS: LUNG BASES: Peripheral parenchymal fibrotic changes redemonstrated. LIVER/GB: Cholecystectomy clips are redemonstrated. PANCREAS: No significant abnormality is seen. SPLEEN: No significant abnormality is seen. ADRENALS: No significant abnormality is seen. KIDNEYS: Cortical thinning bilaterally. Symmetric cortical uptake and excretion without hydronephrosi s. BOWEL: Appendix well seen ascending from the cecum measures up to 7 mm in minimally dilated and more prominent from prior study. There is a 4 to 5 mm round low dense outpouching suspected diverticulum f rom the appendix axial image 48 near the tip. This in retrospect was present on prior study axial alan ge 97. There is no significant surrounding fluid or fat stranding to suggest acute appendicitis. No s uspicious small or large bowel dilatation. Diverticula throughout the left and sigmoid colon. No conv incing CT evidence for acute diverticulitis. UTERUS/ADNEXA: Uterus is surgically absent. Surgical clip in the pelvis redemonstrated axial image 66 . Adjacent pelvic phleboliths redemonstrated. LYMPH NODES: No greater than 1cm abdominal or pelvic lymph nodes are appreciated. OSSEOUS STRUCTURES: Moderate axial joint space loss in both hips. Exaggerated lumbar lordosis. Multil evel facet arthropathy in the mid to lower lumbar spine. OTHER: [id number] calcified plaque of the aorta extends into branch vessels. There is fat-conta ining umbilical wall hernia axial image 42 redemonstrated. IMPRESSION: No convincing CT evidence for acute appendicitis. The appendix is minimally dilated and m ore prominent from the prior CT but there is no significant surrounding fat stranding to suggest acut e appendicitis. Distal colonic diverticulosis without convincing CT evidence for acute diverticulitis . No acute findings clearly seen.
[2022-11-02] MEDS ORDERED: ONDANSETRON 4 MG/2 ML VIAL IVP PRN (15:44)
[2022-11-02] MEDS ORDERED: NALOXONE 0.4 MG/ML 1 ML VIAL IV PRN (15:44)
[2022-11-02] MEDS ORDERED: KETOROLAC 15 MG/ML 1 ML VIAL IVP PRN (15:44)
[2022-11-02] MEDS ORDERED: ACETAMINOPHEN TAB 325 MG TAB PO PRN (15:44)
[2022-11-02] MEDS ORDERED: MORPHINE SULFATE 2 MG/ML SYRINGE IV PRN (15:44)
[2022-11-03] MEDS ORDERED: FUROSEMIDE 20 MG TAB PO SCH (09:00)
[2022-11-03 09:07] VITALS: BP 147/73; PULSE 87; RESP 16; TEMP 97.8
[2022-11-03] MEDS ORDERED: ISOSORBIDE MONONITRATE ER 30 MG TAB.ER.24H PO SCH (09:15)
[2022-11-03] MEDS ORDERED: LEVOTHYROXINE 125 MCG TAB PO SCH (09:15)
--- NOTE | 2022-11-03 09:46 | P.GSHP ---
History of Present Illness H&P Date: 11/03/22 Chief Complaint: Right lower quadrant pain This 79-year-old female who was admitted to the emergency room with complaints of right lower r quadrant pain. Patient was admitted for concern for possible appendicitis. The CAT scan shows a minimally dilated appendix without evidence of any inflammatory changes. Patient states this morning that her pain is resolved. She feels totally normal and was to go home. Past Medical History Past Medical History: Asthma, Diabetes Mellitus, Hyperlipidemia, Hypertension, Osteoarthritis (OA), Sleep Apnea/CPAP/BIPAP Additional Past Medical History / Comment(s): varicose veins rt leg,no longer uses cpap,diet control diabetes,restless leg History of Any Multi-Drug Resistant Organisms: None Reported Past Surgical History: Cholecystectomy, Heart Catheterization, Hernia Repair, Hysterectomy Additional Past Surgical History / Comment(s): doreen cornea transplants,doreen cataract,partial hyst,umbilical hernia repair, total thyroidectomy secondary to thyroid cancer 2012, breast biopsy, left heart catheterization 2014 with normal coronaries. Past Anesthesia/Blood Transfusion Reactions: No Reported Reaction Additional Past Anesthesia/Blood Transfusion Reaction / Comment(s): no hx blood transfusion Past Psychological History: No Psychological Hx Reported Smoking Status: Never smoker Past Alcohol Use History: None Reported Past Drug Use History: None Reported - Past Family History Mother Family Medical History: No Reported History Father Family Medical History: Renal Disease (father at age of 76 from acute renal failure.) Brother(s) Family Medical History: Coronary Artery Disease (CAD) (patient has 3 brothers one of them with CAD.) Son(s) Family Medical History: Rheumatoid Arthritis (RA) (patient has one son with rheumatoid arthritis.) Daughter(s) Family Medical History: No Reported History (patient has one daughter no major medical problems and 3 stepdaughters as well.) Medications and Allergies Home Medications Medication Instructions Recorded Confirmed Type Cyanocobalamin [Vitamin B-12] 500 mcg PO HS 07/11/15 11/02/22 History Glucosamine/Chondr Downs A Sod [Osteo 1 tab PO DAILY 07/11/15 11/02/22 History Bi-Flex Caplet] Metoprolol Tartrate 25 mg PO BID 07/11/15 11/02/22 History Montelukast [Singulair] 10 mg PO HS 07/11/15 11/02/22 History Multivit-Min/FA/Lycopen/Lutein 1 tab PO DAILY 07/11/15 11/02/22 History [Centrum Silver Tablet] Pravastatin Sodium [Pravachol] 80 mg PO HS 07/11/15 11/02/22 History rOPINIRole HCL [Requip] 1.5 mg PO HS 07/11/15 11/02/22 History Fluticasone Nasal [place] [Flonase 2 spray EA NOSTRIL DAILY 09/10/16 11/02/22 History Nasal [place]] Isosorbide Mononitrate ER [Imdur] 30 mg PO QAM 09/10/16 11/02/22 History Aspirin EC [Ecotrin Low Dose] 81 mg PO DAILY 11/02/22 11/02/22 History Jonathan/D3/Mag11/Zinc/Functional Mental Disability Teacher/Stephane/Bor 1 tab PO DAILY 11/02/22 11/02/22 History [Caltrate 600+D Plus Tablet] Diclofenac Sodium [Voltaren 2 gm TOPICAL QID PRN 11/02/22 11/02/22 History Arthritis Pain 1% Gel] Furosemide [Lasix] 20 mg PO BID 11/02/22 11/02/22 History Levothyroxine Sodium 125 mcg PO DAILY 11/02/22 11/02/22 History Potassium Chloride [Klor-Con M10] 10 meq PO BID 11/02/22 11/02/22 History Raloxifene HCl 60 mg PO DAILY 11/02/22 11/02/22 History allopurinoL [Zyloprim] 300 mg PO DAILY 11/02/22 11/02/22 History Allergies Allergy/AdvReac Type Severity Reaction Status Date / Time No Known Allergies Allergy Verified 11/02/22 15:04 Surgical - Exam Vital Signs Temp Pulse Resp BP Pulse Ox 98 F 103 H 20 173/82 98 11/02/22 11:35 11/02/22 11:35 11/02/22 11:35 11/02/22 11:35 11/02/22 11:35 - General well developed, well nourished, no distress - Eyes PERRL - ENT normal pinna - Neck no masses - Respiratory normal expansion - Cardiovascular Rhythm: regular - Abdomen Abdomen: soft, non tender Results - Labs 11/02/22 13:24 11/02/22 13:24 Abnormal Lab Results - Last 24 Hours (Table) 03/11/02/22 11/02/22 Range/Units 13:24 13:24 13:24 Lymphocytes # 0.8 L (1.0-4.8) k/uL APTT 21.4 L (22.0-30.0) sec BUN 24 H (7-17) mg/dL Glucose 114 H (74-99) mg/dL Ur Leukocyte Esterase (Negative) Urine WBC (0-5) /hpf 11/02/22 Range/Units 14:26 Lymphocytes # (1.0-4.8) k/uL APTT (22.0-30.0) sec BUN (7-17) mg/dL Glucose (74-99) mg/dL Ur Leukocyte Esterase Moderate H (Negative) Urine WBC 13 H (0-5) /hpf Microbiology - Last 24 Hours (Table) 11/02/22 14:26 Urine Culture - Preliminary Urine,Voided Diabetes panel 11/02/22 Range/Units 13:24 Sodium 141 (137-145) mmol/L Potassium 4.2 (3.5-5.1) mmol/L Chloride 107 (98-107) mmol/L Carbon Dioxide 28 (22-30) mmol/L BUN 24 H (7-17) mg/dL Creatinine 0.99 (0.52-1.04) mg/dL Glucose 114 H (74-99) mg/dL Calcium 8.9 (8.4-10.2) mg/dL AST 22 (14-36) U/L ALT 19 (4-34) U/L Alkaline Phosphatase 73 (38-126) U/L Total Protein 6.4 (6.3-8.2) g/dL Albumin 3.5 (3.5-5.0) g/dL Calcium panel 11/02/22 Range/Units 13:24 Calcium 8.9 (8.4-10.2) mg/dL Albumin 3.5 (3.5-5.0) g/dL Pituitary panel 11/02/22 Range/Units 13:24 Sodium 141 (137-145) mmol/L Potassium 4.2 (3.5-5.1) mmol/L Chloride 107 (98-107) mmol/L Carbon Dioxide 28 (22-30) mmol/L BUN 24 H (7-17) mg/dL Creatinine 0.99 (0.52-1.04) mg/dL Glucose 114 H (74-99) mg/dL Calcium 8.9 (8.4-10.2) mg/dL Adrenal panel 11/02/22 Range/Units 13:24 Sodium 141 (137-145) mmol/L Potassium 4.2 (3.5-5.1) mmol/L Chloride 107 (98-107) mmol/L Carbon Dioxide 28 (22-30) mmol/L BUN 24 H (7-17) mg/dL Creatinine 0.99 (0.52-1.04) mg/dL Glucose 114 H (74-99) mg/dL Calcium 8.9 (8.4-10.2) mg/dL Total Bilirubin 0.6 (0.2-1.3) mg/dL AST 22 (14-36) U/L ALT 19 (4-34) U/L Alkaline Phosphatase 73 (38-126) U/L Total Protein 6.4 (6.3-8.2) g/dL Albumin 3.5 (3.5-5.0) g/dL Assessment and Plan Plan: Right lower quadrant pain. The patient's pain has resolved. She'll be discharged home today.
--- NOTE | 2022-11-03 09:47 | P.DS ---
Providers Date of admission: 11/02/22 15:48 Expected date of discharge: 11/03/22 Attending physician: Geovany Larose Consults: 11/02/22 15:44 Consult Physician Urgent Consulting Provider: Kait Burton Consult Reason/Comments: Medical management Do you want consulting provider notified?: Yes Primary care physician: [facility] Course: Is an 79-year-old female who was admitted to the hospital for complaints of quadrant pain. Patient's CAT scan shows a possible mildly dilated appendix. The patient's pain resolved. She was discharged home the next morning. Plan - Discharge Summary New Discharge Prescriptions: No Action Metoprolol Tartrate 25 mg PO BID rOPINIRole HCL [Requip] 1.5 mg PO HS Pravastatin Sodium [Pravachol] 80 mg PO HS Montelukast [Singulair] 10 mg PO HS Glucosamine/Chondr [place] A Sod [Osteo Bi-Flex Caplet] 1 tab PO DAILY Cyanocobalamin [Vitamin B-12] 500 mcg PO HS Multivit-Min/FA/Lycopen/Lutein [Centrum Silver Tablet] 1 tab PO DAILY Fluticasone Nasal [place] [Flonase Nasal [place]] 2 spray EA NOSTRIL DAILY Isosorbide Mononitrate ER [Imdur] 30 mg PO QAM allopurinoL [Zyloprim] 300 mg PO DAILY Furosemide [Lasix] 20 mg PO BID Aspirin EC [Ecotrin Low Dose] 81 mg PO DAILY Jonathan/D3/Mag11/Zinc/Family Service Worker/Stephane/Bor [Caltrate 600+D Plus Tablet] 1 tab PO DAILY Raloxifene HCl 60 mg PO DAILY Levothyroxine Sodium 125 mcg PO DAILY Potassium Chloride [Klor-Con M10] 10 meq PO BID Diclofenac Sodium [Voltaren Arthritis Pain 1% Gel] 2 gm TOPICAL QID PRN PRN Reason: Pain Discharge Medication List Cyanocobalamin [Vitamin B-12] 500 mcg PO HS 07/11/15 [History] Glucosamine/Chondr [place] A Sod [Osteo Bi-Flex Caplet] 1 tab PO DAILY 07/11/15 [History] Metoprolol Tartrate 25 mg PO BID 07/11/15 [History] Montelukast [Singulair] 10 mg PO HS 07/11/15 [History] Multivit-Min/FA/Lycopen/Lutein [Centrum Silver Tablet] 1 tab PO DAILY 07/11/15 [History] Pravastatin Sodium [Pravachol] 80 mg PO HS 07/11/15 [History] rOPINIRole HCL [Requip] 1.5 mg PO HS 07/11/15 [History] Fluticasone Nasal [place] [Flonase Nasal [place]] 2 spray EA NOSTRIL DAILY 09/10/16 [History] Isosorbide Mononitrate ER [Imdur] 30 mg PO QAM 09/10/16 [History] Aspirin EC [Ecotrin Low Dose] 81 mg PO DAILY 11/02/22 [History] Jonathan/D3/Mag11/Zinc/Family Service Worker/Stephane/Bor [Caltrate 600+D Plus Tablet] 1 tab PO DAILY 11/02/22 [History] Diclofenac Sodium [Voltaren Arthritis Pain 1% Gel] 2 gm TOPICAL QID PRN 11/02/22 [History] Furosemide [Lasix] 20 mg PO BID 11/02/22 [History] Levothyroxine Sodium 125 mcg PO DAILY 11/02/22 [History] Potassium Chloride [Klor-Con M10] 10 meq PO BID 11/02/22 [History] Raloxifene HCl 60 mg PO DAILY 11/02/22 [History] allopurinoL [Zyloprim] 300 mg PO DAILY 11/02/22 [History] Follow up Appointment(s)/Referral(s): Franca Salinas MD [Primary Care Provider] - 1-2 days Geovany Larose MD [STAFF PHYSICIAN] - As Needed Discharge Disposition: HOME SELF-CARE
[2022-11-03] MEDS ORDERED: POTASSIUM CHLORIDE ER 10 MEQ TAB.ER.PRT PO SCH (21:00)
[2022-11-03] MEDS ORDERED: METOPROLOL TARTRATE 25 MG TAB PO SCH (21:00)
[2022-11-03] MEDS ORDERED: MONTELUKAST 10 MG TAB PO SCH (21:00)
[2022-11-03] MEDS ORDERED: CYANOCOBALAMIN 500 MCG TAB PO SCH (21:00)
--- NOTE | 2022-11-04 08:50 | P.CONS ---
History of Present Illness - Reason for Consult Consult date: 11/02/22 Medical management - Chief Complaint Abdominal pain - History of Present Illness 87-year-old female who presents to the emergency department with right lower quadrant pain. Patient states that this started suddenly early this morning when she was making coffee. Denies any history of similar symptoms in the past. She did throw up once. Denies any diarrhea, but states that she has been constipated for the last couple of days. Denies any history of similar symptoms in the past. Pain is worse when trying to move or ambulate. She's not measured any fevers. Lab work obtained and found to be nonactionable. Computed tomography scan of the abdomen and pelvis obtained. Findings revealed a mildly dilated appendix, which is more prominent from the computed tomography scan on at 09/14/22. She did have improvement with the Toradol. Symptoms are improved at rest, however they are still very painful if she tries to move whatsoever. Review of Systems REVIEW OF SYSTEMS: CONSTITUTIONAL: No fever, no malaise, no fatigue. HEENT: No recent visual problems or hearing problems. Denied any sore throat. CARDIOVASCULAR: No chest pain, orthopnea, PND, no palpitations, no syncope. PULMONARY: No shortness of breath, no cough, no hemoptysis. GASTROINTESTINAL: No diarrhea, no nausea, no vomiting, patient does complain of abdominal pain. NEUROLOGICAL: No headaches, no weakness, no numbness. HEMATOLOGICAL: Denies any bleeding or petechiae. GENITOURINARY: Denies any burning micturition, frequency, or urgency. MUSCULOSKELETAL/RHEUMATOLOGICAL: Denies any joint pain, swelling, or any muscle pain. ENDOCRINE: Denies any polyuria or polydipsia. The rest of the 14-point review of systems is negative. Past Medical History Past Medical History: Asthma, Diabetes Mellitus, Hyperlipidemia, Hypertension, Osteoarthritis (OA), Sleep Apnea/CPAP/BIPAP Additional Past Medical History / Comment(s): varicose veins rt leg,no longer uses cpap,diet control diabetes,restless leg History of Any Multi-Drug Resistant Organisms: None Reported Past Surgical History: Cholecystectomy, Heart Catheterization, Hernia Repair, Hysterectomy Additional Past Surgical History / Comment(s): doreen cornea transplants,doreen cataract,partial hyst,umbilical hernia repair, total thyroidectomy secondary to thyroid cancer 2012, breast biopsy, left heart catheterization 2014 with normal coronaries. Past Anesthesia/Blood Transfusion Reactions: No Reported Reaction Additional Past Anesthesia/Blood Transfusion Reaction / Comm: no hx blood transfusion Past Psychological History: No Psychological Hx Reported Smoking Status: Never smoker Past Alcohol Use History: None Reported Past Drug Use History: None Reported - Past Family History Mother Family Medical History: No Reported History Father Family Medical History: Renal Disease (father at age of 76 from acute renal failure.) Brother(s) Family Medical History: Coronary Artery Disease (CAD) (patient has 3 brothers one of them with CAD.) Son(s) Family Medical History: Rheumatoid Arthritis (RA) (patient has one son with rheumatoid arthritis.) Daughter(s) Family Medical History: No Reported History (patient has one daughter no major medical problems and 3 stepdaughters as well.) Medications and Allergies Home Medications Medication Instructions Recorded Confirmed Type Cyanocobalamin [Vitamin B-12] 500 mcg PO HS 07/11/15 11/02/22 History Glucosamine/Chondr [place]s A Sod [Osteo 1 tab PO DAILY 07/11/15 11/02/22 History Bi-Flex Caplet] Metoprolol Tartrate 25 mg PO BID 07/11/15 11/02/22 History Montelukast [Singulair] 10 mg PO HS 07/11/15 11/02/22 History Multivit-Min/FA/Lycopen/Lutein 1 tab PO DAILY 07/11/15 11/02/22 History [Centrum Silver Tablet] Pravastatin Sodium [Pravachol] 80 mg PO HS 07/11/15 11/02/22 History rOPINIRole HCL [Requip] 1.5 mg PO HS 07/11/15 11/02/22 History Fluticasone Nasal [place] [Flonase 2 spray EA NOSTRIL DAILY 09/10/16 11/02/22 History Nasal [place]] Isosorbide Mononitrate ER [Imdur] 30 mg PO QAM 09/10/16 11/02/22 History Aspirin EC [Ecotrin Low Dose] 81 mg PO DAILY 11/02/22 11/02/22 History Jonathan/D3/Mag11/Zinc/Emt I/85/Stephane/Bor 1 tab PO DAILY 11/02/22 11/02/22 History [Caltrate 600+D Plus Tablet] Diclofenac Sodium [Voltaren 2 gm TOPICAL QID PRN 11/02/22 11/02/22 History Arthritis Pain 1% Gel] Furosemide [Lasix] 20 mg PO BID 11/02/22 11/02/22 History Levothyroxine Sodium 125 mcg PO DAILY 11/02/22 11/02/22 History Potassium Chloride [Klor-Con M10] 10 meq PO BID 11/02/22 11/02/22 History Raloxifene HCl 60 mg PO DAILY 11/02/22 11/02/22 History allopurinoL [Zyloprim] 300 mg PO DAILY 11/02/22 11/02/22 History Allergies Allergy/AdvReac Type Severity Reaction Status Date / Time No Known Allergies Allergy Verified 11/02/22 15:04 Physical Exam Vitals: Vital Signs Temp Pulse Pulse Resp BP BP Pulse Ox 11/02/22 17:50 97.7 F 88 18 151/76 99 11/02/22 15:00 96 18 164/88 98 11/02/22 13:00 99 18 154/78 98 11/02/22 11:35 98 F 103 H 20 173/82 98 Intake and Output 11/02/22 11/02/22 11/02/22 06:59 14:59 22:59 Other: Weight 68.039 kg PHYSICAL EXAMINATION: GENERAL: The patient is alert and oriented x3, not in any acute distress. Well developed, well nourished. HEENT: Pupils are round and equally reacting to light. EOMI. No scleral icterus. No conjunctival pallor. Normocephalic, atraumatic. No pharyngeal erythema. No thyromegaly. CARDIOVASCULAR: S1 and S2 present. No murmurs, rubs, or gallops. PULMONARY: Chest is clear to auscultation, no wheezing or crackles. ABDOMEN: Soft, diffuse tenderness, nondistended, normoactive bowel sounds. No palpable organomegaly. MUSCULOSKELETAL: No joint swelling or deformity. EXTREMITIES: No cyanosis, clubbing, or pedal edema. NEUROLOGICAL: Gross neurological examination did not reveal any focal deficits. SKIN: No rashes. Results CBC & Chem 7: 11/02/22 13:24 11/02/22 13:24 Labs: Abnormal Lab Results - Last 24 Hours (Table) 11/02/22 11/02/22 11/02/22 Range/Units 13:24 13:24 13:24 Lymphocytes # 0.8 L (1.0-4.8) k/uL APTT 21.4 L (22.0-30.0) sec BUN 24 H (7-17) mg/dL Glucose 114 H (74-99) mg/dL Ur Leukocyte Esterase (Negative) Urine WBC (0-5) /hpf 11/02/22 Range/Units 14:26 Lymphocytes # (1.0-4.8) k/uL APTT (22.0-30.0) sec BUN (7-17) mg/dL Glucose (74-99) mg/dL Ur Leukocyte Esterase Moderate H (Negative) Urine WBC 13 H (0-5) /hpf Assessment and Plan Assessment: 1. Abdominal pain; right upper quadrant -- CT of the abdomen completed reveals mildly dilated appendix which is more prominent from CT done on 09/14/2022 - We will continue with IV fluid hydration; keep patient nothing by mouth; surgery is consulted 2. Mild renal injury; BUN slightly elevated at 24; patient remains on IV fluids as indicated above; we will monitor renal function and electrolytes, strict CAROLYN's and daily weights, avoid nephrotoxins and hypotension 3. Asthma; not in exacerbation; continue with home inhaler therapy 4. Hypertension; metoprolol 25 mg twice a day; isosorbide 30 mg daily 5. Hypothyroidism; levothyroxin 125 MCG daily 6. Hyperlipidemia; Pravachol 80 mg by mouth daily at bedtime 7. Hyperuricemia/gout; allopurinol 300 mg daily DVT prophylaxis; SCDs CODE STATUS; full code
--- NOTE | 2022-11-04 08:51 | P.PN ---
Subjective Progress Note Date: 11/03/22 87-year-old female who presents to the emergency department with right lower quadrant pain. Patient states that this started suddenly early this morning when she was making coffee. Denies any history of similar symptoms in the past. She did throw up once. Denies any diarrhea, but states that she has been constipated for the last couple of days. Denies any history of similar symptoms in the past. Pain is worse when trying to move or ambulate. She's not measured any fevers. Lab work obtained and found to be nonactionable. Computed tomography scan of the abdomen and pelvis obtained. Findings revealed a mildly dilated appendix, which is more prominent from the computed tomography scan on at 09/14/22. She did have improvement with the Toradol. Symptoms are improved at rest, however they are still very painful if she tries to move whatsoever. Objective - Vital Signs Vital signs: Vital Signs Temp 98.2 F 11/03/22 01:49 Pulse 74 11/03/22 01:49 Resp 18 11/03/22 01:49 BP 111/47 11/03/22 01:49 Pulse Ox 96 11/03/22 01:49 FiO2 Intake & Output 11/02/22 11/03/22 11/03/22 18:59 06:59 18:59 Weight 68.039 kg Other: Voiding Method Toilet # Voids 2 - Exam PHYSICAL EXAMINATION: GENERAL: The patient is alert and oriented x3, not in any acute distress. Well developed, well nourished. HEENT: Pupils are round and equally reacting to light. EOMI. No scleral icterus. No conjunctival pallor. Normocephalic, atraumatic. No pharyngeal erythema. No thyromegaly. CARDIOVASCULAR: S1 and S2 present. No murmurs, rubs, or gallops. PULMONARY: Chest is clear to auscultation, no wheezing or crackles. ABDOMEN: Soft, nontender, nondistended, normoactive bowel sounds. No palpable organomegaly. MUSCULOSKELETAL: No joint swelling or deformity. EXTREMITIES: No cyanosis, clubbing, or pedal edema. NEUROLOGICAL: Gross neurological examination did not reveal any focal deficits. SKIN: No rashes. - Labs CBC & Chem 7: 11/02/22 13:24 11/02/22 13:24 Labs: Abnormal Lab Results - Last 24 Hours (Table) 11/02/22 11/02/22 11/02/22 Range/Units 13:24 13:24 13:24 Lymphocytes # 0.8 L (1.0-4.8) k/uL APTT 21.4 L (22.0-30.0) sec BUN 24 H (7-17) mg/dL Glucose 114 H (74-99) mg/dL Ur Leukocyte Esterase (Negative) Urine WBC (0-5) /hpf 11/02/22 Range/Units 14:26 Lymphocytes # (1.0-4.8) k/uL APTT (22.0-30.0) sec BUN (7-17) mg/dL Glucose (74-99) mg/dL Ur Leukocyte Esterase Moderate H (Negative) Urine WBC 13 H (0-5) /hpf Microbiology - Last 24 Hours (Table) 11/02/22 14:26 Urine Culture - Preliminary Urine,Voided Assessment and Plan Assessment: 1. Abdominal pain; right upper quadrant -- CT of the abdomen completed reveals mildly dilated appendix which is more prominent from CT done on 09/14/2022 - We will continue with IV fluid hydration; keep patient nothing by mouth; [facility] islas is consulted 2. Mild renal injury; BUN slightly elevated at 24; patient remains on IV fluids as indicated above; we will monitor renal function and electrolytes, strict CAROLYN's and daily weights, avoid nephrotoxins and hypotension 3. Asthma; not in exacerbation; continue with home inhaler therapy 4. Hypertension; metoprolol 25 mg twice a day; isosorbide 30 mg daily 5. Hypothyroidism; levothyroxin 125 MCG daily 6. Hyperlipidemia; Pravachol 80 mg by mouth daily at bedtime 7. Hyperuricemia/gout; allopurinol 300 mg daily DVT prophylaxis; SCDs CODE STATUS; full code
[2022-11-04] MEDS ORDERED: RALOXIFENE 60 MG TAB PO SCH (09:00)
[2022-11-04] MEDS ORDERED: allopurinoL 300 MG TAB PO SCH (09:00)
[2022-11-04] MEDS ORDERED: ASPIRIN 81 MG PO SCH (09:00)
[2022-11-04] MEDS ORDERED: FLUTICASONE 50MCG/SPRAY NASAL 16GM EA NOSTRIL SCH (09:00)
== END 2022-11-03 11:09 | disposition home or self-care (01) ==
LOC: EC 11:23 → 6NMEDSUR 15:48
PROVIDERS: ADMIT Surgery; ATTEND Surgery
DX: R10.31 Right lower quadrant pain (principal); N28.9 Disorder of kidney and ureter, unspecified; K59.00 Constipation, unspecified; K57.30 Diverticulosis of large intestine without perforation or abscess without bleeding; R11.2 Nausea with vomiting, unspecified; M10.9 Gout, unspecified; G47.30 Sleep apnea, unspecified; E89.0 Postprocedural hypothyroidism; E78.5 Hyperlipidemia, unspecified; G25.81 Restless legs syndrome; I83.91 Asymptomatic varicose veins of right lower extremity; E11.9 Type 2 diabetes mellitus without complications; I10 Essential (primary) hypertension; J45.909 Unspecified asthma, uncomplicated; M19.90 Unspecified osteoarthritis, unspecified site; Z79.82 Long term (current) use of aspirin; Z79.890 Hormone replacement therapy; Z79.899 Other long term (current) drug therapy; Z90.49 Acquired absence of other specified parts of digestive tract; Z90.710 Acquired absence of both cervix and uterus; Z94.7 Corneal transplant status; Z98.42 Cataract extraction status, left eye; Z98.41 Cataract extraction status, right eye; Z85.850 Personal history of malignant neoplasm of thyroid; Z98.890 Other specified postprocedural states; Z84.1 Family history of disorders of kidney and ureter; Z82.49 Family history of ischemic heart disease and other diseases of the circulatory system; Z82.61 Family history of arthritis
CPT/HCPCS: 96361 ×3; 96374; 99285; 36415; 80053; 82150; 83605; 83690; 85025; 85610; 85730; 81001; 87086; 74177; G0378 ×2; J1885; Q9967

== ENCOUNTER → 2023-03-11 | Outpatient (CLI) | payer MEDICARE ==
--- NOTE | 2023-03-12 08:56 | MM ---
Reason for Exam: Screening (asymptomatic). Last mammogram was performed 1 year(s) and 1 month(s) ago. Patient History: Menarche at age 13. First Full-Term at age 25. Hysterectomy at age 65. Postmenopausal. Other cancer, age 77. 04/04/2011, Benign Core Biopsy on the right side. 06/25/2005, Benign Core Biopsy on the left side. 06/25/2005, Benign Core Biopsy on the right side. 10/15/2000, Benign Stereotactic Core Biopsy on the right side. Prior Study Comparison: 05/18/2016 Bilateral Screening Mammogram, [facility]. 08/29/2017 Bilateral Screening Mammogram, [facility]. 09/19/2018 Bilateral Screening Mammogram, [facility]. 09/21/2019 Bilateral Screening Mammogram, [facility]. 12/15/2020 Bilateral Screening Mammogram, [facility]. 02/23/2022 Bilateral MG 3D screening mammo w/cad, [facility]. Tissue Density: The breast tissue is heterogeneously dense. This may lower the sensitivity of mammography. Findings: Analyzed By CAD. There is no suspicious group of microcalcifications or new suspicious mass in either breast. Overall Assessment: Benign, BI-RAD 2 Management: Screening Mammogram of both breasts in 1 year. . Patient should continue monthly self-breast exams. A clinical breast exam by your physician is recommended on an annual basis. This exam should not preclude additional follow-up of suspicious palpable abnormalities. Note on Beth scores and lifetime risk: 1. A Beth score greater than 3% is considered moderate risk. If this is the case, consider specialist referral to assess eligibility for a risk reducing agent. 2. If overall lifetime risk for the development of breast cancer is 20% or higher, the patient may qualify for future screening with alternating mammogram and breast MRI. Electronically signed and approved by: Yrn Saldaña M.D. Radiologis
== END | disposition home or self-care (01) ==
LOC: RADMAMWWP 12:21
PROVIDERS: ATTEND Family Medicine
DX: Z12.31 Encounter for screening mammogram for malignant neoplasm of breast (principal); Z78.0 Asymptomatic menopausal state
CPT/HCPCS: 77063; 77067

== ENCOUNTER 2023-06-12 06:13 | Day surgery (SDC) | payer MEDICARE ==
[~2023-06-12 06:13] MED LIST changes: -ACETAMINOPHEN TAB 500 MG TAB PO ONE; +ATROPINE OPHTH SOLN 1% 5ML BTL OPHTHALMIC PRN; +BUPIVACAINE (PF) 0.5% 4.5 ML, HYALURONIDASE, HUMAN RECOMB 150 UNIT, LIDOCAINE 2% (PF) 9... IO PRN; -DEXAMETHASONE SOD PHOSPHATE 10 MG/ML 1 ML VIAL IV ONE; -HYDROmorphone 1 MG/ML 1 ML SYRINGE IVP PRN; +LIDOCAINE 1% (10MG/ML) FOR IV START INTRADERMA PRN; -MELOXICAM 7.5 MG TAB PO ONE; -MIDAZOLAM 2 MG/2 ML VIAL IV PRN; +MOXIFLOXACIN HCL 0.5% DROPS 3 ML BTL OP PRN; +TETRACAINE 0.5% OPHTH (PF) DROPS 4 ML BTL OP PRN; +TIMOLOL 0.5% OPHTH DROPS 5 ML BTL OP PRN; -TRANEXAMIC ACID 1,000 MG in SODIUM CHLORIDE 0.9% 100 ML IVPB ONE; -ceFAZolin 2 GM in SODIUM CHLORIDE 0.9% 100 ML IVPB ONE
[2023-06-12 06:46] LABS: Glucose,Whole Blood 104 mg/dL (70-110)
[2023-06-12] MEDS: PILOCARPINE 2% OPHTH DROPS 15 ML BTL OP PRN ×3 (06:47→06:57)
[2023-06-12 07:24] VITALS: TEMP 98.1
[2023-06-12] MEDS ORDERED: PROPOFOL 10 MG/ML 20 ML VIAL IV ONE (07:53)
[2023-06-12] MEDS ORDERED: BUPIVACAINE (PF) 0.5% 30 ML VIAL MISCELLANE ONE (08:21)
[2023-06-12] MEDS ORDERED: HYALURONIDASE, HUMAN RECOMB 150 UNIT/ML 1 ML VIAL IO ONE (08:22)
[2023-06-12] MEDS ORDERED: LIDOCAINE 2% INJ 20 MG/ML SQ ONE (08:23)
[2023-06-12] MEDS ORDERED: HYALURONATE SODIUM INTRAOCULAR 1 EACH SYRINGE (12MG/ML) INTRAOCULA ONE (08:26)
[2023-06-12] MEDS ORDERED: BALANCED SALT IRRIG SOLN COMB2 500 ML IRRIGATION ONE (08:43)
--- NOTE | 2023-06-12 09:30 | P.OP ---
Date of Procedure: 06/12/23 Preoperative Diagnosis: endothelial dystrophy Postoperative Diagnosis: same Procedure(s) Performed: DMEK Implants: [id number] Anesthesia: regional Surgeon: Juan Townsend Pathology: other (ANTIBACTERIAL STUDIES) Condition: stable Disposition: same day Indications for Procedure: poor vision Operative Findings: no complications
[2023-06-12 11:55] VITALS: BP 123/67; PULSE 64; RESP 16
--- NOTE | 2023-06-14 10:16 | OP ---
OPERATIVE REPORT DATE OF SERVICE : 06/12/2023 PROCEDURE: Descemet membrane endothelial keratoplasty of the right eye. 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 ANESTHESIA: Regional. ESTIMATED BLOOD LOSS: None. SPECIMEN TAKEN: None. NARRATIVE: After obtaining the appropriate consent, the patient was brought to the operating room. There she was placed under cardiac monitoring and induced into a twilight sleep. She was given a retrobulbar anesthetic consisting of 2% Marcaine and 1% Xylocaine without epinephrine and 150 units of hyaluronidase. Approximately 7.5 mL was placed in the retrobulbar space using a 25-gauge Abdi needle. A Honan balloon was then placed on the eye for 10 minutes. After assessing for adequate anesthesia, the Honan balloon was removed, and the patient was then prepped and draped in the usual manner. She was approached from her right temporal side and 4 paracenteses using an MVR blade were created in each of the diagonal quadrants at the corneal limbus at the 9 o'clock position. The 10-0 nylon suture was removed, and the previous temporal incision was identified and enlarged with a 2.5 mm keratome. Inspection of the anterior chamber did not reveal any previously placed Descemet membrane tissue loose within the anterior chamber, rather it was still in position against the stroma of the patient's cornea. Using a Descemet membrane stripping tool, the failed Descemet membrane tissue was removed in its entirety. Irrigation and aspiration were performed on the anterior chamber to ensure the removal of all remaining viscoelastic or remnant tissue from the anterior chamber of the eye. The eye was then filled with balanced salt solution to a minimal amount. Tissue from the eye bank identified as [id number] cornea and Optisol GS, right, was then brought to the field and the tissue contained within a Felipe tube was removed and placed in a Varinder dish with balanced salt solution. The protective cap was removed, and a syringe was attached to the base of the Felipe tube. The tissue appeared to move easily within the Felipe tube itself. It was then brought over to the patient's eye and gently injected into the anterior chamber of the patient capturing it within the anterior chamber. The temporal incision was closed with a 10-0 nylon suture in an X fashion, and using multiple manipulation methods, the tissue was unscrolled and bullied into place with a small air bubble. Once the position seemed adequate, SF6 at 20% was injected into the anterior chamber to tamponade the donor tissue against the patient's cornea. After 20 minutes elapsed time, the pressure within the eye was reduced, and a good portion of the gas was replaced with balanced salt solution leaving approximately a 50% gas bubble within the patient's eye. She was then dressed with 2 drops of 0.5% moxifloxacin as well as 2 drops of 0.5% timolol and 2 drops of 1% atropine. The eye was protected with a Beltrán shield, and she was returned to the recovery area where she remained supine for the next hour. At the bedside, a slit lamp examination was performed and confirmed the placement of the donor tissue in the patient's eye. She was deemed clear to be discharged from the hospital with appropriate instruction. She tolerated the procedure well. There were no complications. MMODDes / IJN: [id number] /
== END 2023-06-12 12:26 | disposition home or self-care (01) ==
LOC: OR 06:13
PROVIDERS: ATTEND Ophthalmology
DX: H18.511 Endothelial corneal dystrophy, right eye (principal); T86.8411 Corneal transplant failure, right eye; I10 Essential (primary) hypertension; E78.5 Hyperlipidemia, unspecified; J45.909 Unspecified asthma, uncomplicated; G47.33 Obstructive sleep apnea (adult) (pediatric); E11.9 Type 2 diabetes mellitus without complications; E07.9 Disorder of thyroid, unspecified; M19.90 Unspecified osteoarthritis, unspecified site; Z79.890 Hormone replacement therapy; Z79.82 Long term (current) use of aspirin; Z79.84 Long term (current) use of oral hypoglycemic drugs; Z98.890 Other specified postprocedural states; Z79.899 Other long term (current) drug therapy
CPT/HCPCS: 87070; 87205; 87075; 65756; V2785; J2001; J3470; J2704; J0665

== ENCOUNTER → 2023-09-02 | Outpatient (CLI) | payer MEDICARE ==
[2023-09-02 18:38] LABS: Basophils # (A) 0.05 X 10*3/uL (0.00-0.10); Basophils % (A) 0.9 %; Eosinophils # (A) 0.05 X 10*3/uL (0.04-0.35); Eosinophils % (A) 0.9 %; HCT 38.1 % (37.2-46.3); HGB 12.3 g/dL (12.0-15.0); Lymphocytes # (A) 0.87 X 10*3/uL (0.90-5.00); Lymphocytes % (A) 15.8 %; MCH 31.2 pg (27.0-32.0); MCHC 32.3 g/dL (32.0-37.0); MCV 96.7 FL (80.0-97.0); Mean Platelet Volume 11.7 FL (9.5-12.2); Monocytes # (A) 0.49 X 10*3/uL (0.20-1.00); Monocytes % (A) 8.9 %; NRBC Per 100 WBC 0 X 10*3/uL (0.00-0.01); Neutrophils # (A) 4.03 X 10*3/uL (1.80-7.70); Neutrophils % (A) 73.1 %; Platelet Count 211 X 10*3/uL (140-440); RBC 3.94 X 10*6/uL (4.10-5.20); RDW 13.7 % (11.5-14.5); WBC 5.51 X 10*3/uL (4.50-10.00)
[2023-09-02 19:05] LABS: ALT 11 U/L (8-44); AST 16 U/L (13-35); Albumin 4.2 g/dL (3.8-4.9); Albumin/Globulin Ratio 1.68 Ratio (1.60-3.17); Alkaline Phosphatase 82 U/L (41-126); BUN/Creat Ratio 23.09 Ratio (12.00-20.00); Blood Urea Nitrogen 25.4 mg/dL (9.0-27.0); Calcium 9.3 mg/dL (8.7-10.3); Carbon Dioxide 27.4 mmol/L (21.6-31.8); Chloride 106 mmol/L (96-109); Chol/HDL Ratio 2.52 Ratio; Globulin 2.5 g/dL (1.6-3.3); Glucose 106 mg/dL (70-110); LDL Cholesterol,Calculated 82.3 mg/dL (0.0-131.0); Potassium 4.1 mmol/L (3.5-5.5); Sodium 145 mmol/L (135-145); T4, Free (Free Thyroxine) 2.33 ng/dL (0.80-1.80); Total Bilirubin 0.4 mg/dL (0.3-1.2); Total Protein 6.7 g/dL (6.2-8.2); VLDL Calculation 13.62 mg/dL (5.00-40.00)
== END | disposition home or self-care (01) ==
LOC: LABWHC1 12:25
PROVIDERS: ATTEND Family Medicine
DX: E11.65 Type 2 diabetes mellitus with hyperglycemia (principal); E78.5 Hyperlipidemia, unspecified
CPT/HCPCS: 36415; 80053; 80061; 83036; 84439; 84443; 85025

== ENCOUNTER → 2023-10-11 | Outpatient (CLI) | payer MEDICARE ==
--- NOTE | 2023-10-11 14:00 | XR ---
EXAMINATION TYPE: XR chest 2V DATE OF EXAM: 10/11/2023 COMPARISON: 04/04/2017. HISTORY: Chronic cough. TECHNIQUE: Frontal and lateral views of the chest are obtained. IMPRESSION: There is scattered bronchial wall thickening and interstitial changes seen throughout the lungs bilat erally which may relate to an inflammatory or infectious etiology. There is no focal consolidation ot herwise seen. The cardiac silhouette and vessels are within normal limits.
== END | disposition home or self-care (01) ==
LOC: RADXRMAIN 13:43
PROVIDERS: ATTEND Family Medicine
DX: J98.09 Other diseases of bronchus, not elsewhere classified (principal); J84.9 Interstitial pulmonary disease, unspecified
CPT/HCPCS: 71046

== ENCOUNTER → 2023-11-18 | Outpatient (CLI) | payer MEDICARE ==
[2023-11-18 15:42] LABS: Basophils # (A) 0.03 X 10*3/uL (0.00-0.10); Basophils % (A) 0.6 %; Eosinophils # (A) 0.07 X 10*3/uL (0.04-0.35); Eosinophils % (A) 1.4 %; HCT 37.5 % (37.2-46.3); HGB 12.1 g/dL (12.0-15.0); Lymphocytes # (A) 1.07 X 10*3/uL (0.90-5.00); Lymphocytes % (A) 21.8 %; MCH 32.1 pg (27.0-32.0); MCHC 32.3 g/dL (32.0-37.0); MCV 99.5 FL (80.0-97.0); Mean Platelet Volume 11.4 FL (9.5-12.2); Monocytes # (A) 0.59 X 10*3/uL (0.20-1.00); NRBC Per 100 WBC 0 X 10*3/uL (0.00-0.01); Neutrophils # (A) 3.13 X 10*3/uL (1.80-7.70); Neutrophils % (A) 63.8 %; Platelet Count 237 X 10*3/uL (140-440); RBC 3.77 X 10*6/uL (4.10-5.20); WBC 4.91 X 10*3/uL (4.50-10.00)
[2023-11-18 16:18] LABS: ALT 17 U/L (8-44); AST 17 U/L (13-35); Albumin/Globulin Ratio 1.67 Ratio (1.60-3.17); Alkaline Phosphatase 78 U/L (41-126); Calcium 9.4 mg/dL (8.7-10.3); Carbon Dioxide 27.2 mmol/L (21.6-31.8); Chloride 105 mmol/L (96-109); Chol/HDL Ratio 2.73 Ratio; Globulin 2.4 g/dL (1.6-3.3); Glucose 106 mg/dL (70-110); LDL Cholesterol,Calculated 92.2 mg/dL (0.0-131.0); Phosphorus 3.5 mg/dL (2.4-5.1); Potassium 4.3 mmol/L (3.5-5.5); Sodium 144 mmol/L (135-145); T4, Free (Free Thyroxine) 1.89 ng/dL (0.80-1.80); Total Bilirubin 0.3 mg/dL (0.3-1.2); Total Protein 6.4 g/dL (6.2-8.2); Uric Acid 4.3 mg/dL (2.9-7.7); VLDL Calculation 11.22 mg/dL (5.00-40.00)
== END | disposition home or self-care (01) ==
LOC: LABWHC1 10:50
PROVIDERS: ATTEND Family Medicine
DX: Z00.01 Encounter for general adult medical examination with abnormal findings (principal); N18.31 Chronic kidney disease, stage 3a; E11.65 Type 2 diabetes mellitus with hyperglycemia; E78.5 Hyperlipidemia, unspecified; E03.9 Hypothyroidism, unspecified; E79.0 Hyperuricemia without signs of inflammatory arthritis and tophaceous disease; E53.8 Deficiency of other specified B group vitamins; E55.9 Vitamin D deficiency, unspecified
CPT/HCPCS: 36415; 80053; 80061; 82306; 82607; 83036; 83970; 84100; 84439; 84443; 84480; 84550; 85025

== ENCOUNTER → 2024-06-12 | Outpatient (CLI) | payer MEDICARE ==
--- NOTE | 2024-06-13 17:59 | BD ---
EXAMINATION TYPE: Axial Bone Density DATE OF EXAM: 06/12/2024 CLINICAL HISTORY: 88 years old Female. ICD-10 CODE: M81.0 AGE RELATED OSTEO , Additional History: Height: 59.5 in Weight: 128 lbs FRAX RISK QUESTIONS: Secondary Osteoporosis: 5. Chronic liver disease: fatty liver MEDICATIONS: Thyroid Medications: yes Which medication: Synthroid How Lon+ years EXAM MEASUREMENTS: Bone mineral densitometry was performed using the [employer] System. Bone mineral density as measured about the Lumbar spine is: ----- L1-L4(G/cm2): 1.207 T Score Values are as follows: ----- L1: -0.8 ----- L2: -0.3 ----- L3: 0.2 ----- L4: 1.2 ----- L1-L4: 0.2 Z Score Values are as follows: ----- L1: 1.5 ----- L2: 1.9 ----- L3: 2.5 ----- L4: 3.4 ----- L1-L4: 2.5 Bone mineral density has: Increased 4.4% since study of: 06/16/2020 Bone mineral density about the R hip (g/cm2): 0.788 Bone mineral density about the L hip (g/cm2): 0.812 T Score values are as follows: -----R Neck: -1.1 -----L Neck: -1.2 -----R Total: -1.7 -----L Total: -1.5 Z Score values are as follows: -----R Neck: 1.6 -----L Neck: 1.6 -----R Total: 1.0 -----L Total: 1.1 Bone mineral density has: Decreased -8.4% since study of: 06/16/2020 FRAX%s: The graph provided illustrates a 10.1% chance for a major osteoporotic fx and a /2.8% chance for the hips probability for fx in 10 years time. IMPRESSION: Osteopenia (T Score between -2.5 and -1). There is slightly increased risk of fracture and the patient may be considered for treatment. Re-Screen 2-5 years. NOTE: T-SCORE=SD OF THE YOUNG ADULT MEAN. [facility], , 06/13/2024 5:57 PM
--- NOTE | 2024-06-19 10:48 | MM ---
Reason for Exam: Screening (asymptomatic). Last mammogram was performed 1 year(s) and 3 month(s) ago. Patient History: Menarche at age 13. First Full-Term at age 25. Hysterectomy at age 65. Postmenopausal. Other cancer, age 77. 04/04/2011, Benign Core Biopsy on the right side. 06/25/2005, Benign Core Biopsy on the left side. 06/25/2005, Benign Core Biopsy on the right side. 10/15/2000, Benign Stereotactic Core Biopsy on the right side. Prior Study Comparison: 12/15/2020 Bilateral Screening Mammogram, [facility]. 02/23/2022 Bilateral MG 3D screening mammo w/cad, [facility]. 03/11/2023 Bilateral MG 3D screening mammo w/cad, [facility]. Tissue Density: There are scattered areas of fibroglandular density. Findings: Analyzed By CAD. Right breast: There is no suspicious group of microcalcifications or new suspicious mass. Benign-appearing calcifications right breast. Left breast: There is no suspicious group of microcalcifications or new suspicious mass. Benign-appearing calcifications left breast. Overall Assessment: Benign, BI-RAD 2 Management: Screening Mammogram of both breasts in [address] [facility] will attempt to contact patient to return for supplemental views and ultrasound if indicated. Patient should continue monthly self-breast exams. A clinical breast exam by your physician is recommended on an annual basis. This exam should not preclude additional follow-up of suspicious palpable abnormalities. Note on Beth scores and lifetime risk: 1. A Beth score greater than 3% is considered moderate risk. If this is the case, consider specialist referral to assess eligibility for a risk reducing agent. 2. If overall lifetime risk for the development of breast cancer is 20% or higher, the patient may qualify for future screening with alternating mammogram and breast MRI. [facility], , 06/19/2024 10:45 AM. Electronically signed and approved by: Danny Kaur DO
== END | disposition home or self-care (01) ==
LOC: RADBDWWP 14:53
PROVIDERS: ATTEND Family Medicine
DX: Z12.31 Encounter for screening mammogram for malignant neoplasm of breast (principal); R92.323 Mammographic fibroglandular density, bilateral breasts; M81.0 Age-related osteoporosis without current pathological fracture; M85.89 Other specified disorders of bone density and structure, multiple sites; K76.0 Fatty (change of) liver, not elsewhere classified; Z78.0 Asymptomatic menopausal state
CPT/HCPCS: 77063; 77067; 77080